=== PATIENT | female | born 1965 | race Caucasian/White ===

== ENCOUNTER 2023-09-03 16:55 | Inpatient (IN) | payer OTHER, SELFPAY ==
[2023-09-03 18:35] VITALS: BP 121/62; PULSE 72; RESP 18; TEMP 37.1; O2SAT 94
--- NOTE | 2023-09-03 18:37 | PC.ADMIT ---
Pt is a 57 y/0 bilingual female admitted from [facility] on a CV with Schizoaffective d/o. Pt was originally admitted to [facility] for RODNEY, which was cleared with IV fluids. Pt then became paranoid and catatonic requiring inpatient. 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 Pt was found sitting at a bustop for an unknown amount of time at a bustop. Pt has a hx HTN, Diabetes, dyslipidemia, and stress incontinence. Tox screen was negative. Pt arrived on a stretcher and was not responding verbally to commands. Pt brought to her room and required physical prompts and assistance to get out of stretcher and into bed. Pt only responded with scant nods and blinking. Pt nodded yes to feeling safe here. Pt has a psychiatric history.Pt was taking medications at [facility].
[2023-09-03] MEDS: LORazepam 1 MG TABLET 2 MG PO (19:13)
[2023-09-03 20:00] VITALS: BP 122/58; PULSE 70; RESP 16; TEMP 36.8; O2SAT 95
[2023-09-03] MEDS: OXcarbazepine 150 MG TABLET PO (21:36)
[2023-09-03] MEDS: metFORMIN HCl 1,000 MG TABLET 1000 MG PO (21:36)
[2023-09-03] MEDS: Atorvastatin Calcium 40 MG TABLET PO (21:36)
[2023-09-03] MEDS: OLANZapine 10 MG TABLET 15 MG PO (21:36)
[2023-09-04 08:13] VITALS: BP 100/56; PULSE 67; RESP 16; TEMP 36.4; O2SAT 93
[2023-09-04 08:13] LABS: Glucose, Whole Blood 131 mg/dL (60-115)
[2023-09-04 08:15] VITALS: BP 100/56
[2023-09-04] MEDS: OXcarbazepine 150 MG TABLET PO ×2 (08:15→21:21)
[2023-09-04] MEDS: metFORMIN HCl 1,000 MG TABLET 1000 MG PO ×2 (08:15→21:21)
[2023-09-04] MEDS: amLODIPine Besylate 5 MG TABLET PO (08:15)
--- NOTE | 2023-09-04 09:05 | P.HPPSP_ITS ---
HPI Date of Service: 09/04/23 Chief Complaint: schizoaffective disorder HPI Narrative: per [facility] documentation, pt presented to ED on 08/23 with paranoia, selective mutism, and apparent catatonia. she had been found sitting at a bus stop apparently catatonic. she was briefly admitted to medicine service for RODNEY, then medical cleared after a few days. early psych evaluations were difficult due to pt's minimal participation and intermittent agitation. she did not improve following 2 mg IV ativan, not supporting catatonia Dx. [facility] notes cite collateral saying pt had stopped her medications about a month [employer] after firing her VNA, and that she had done well historically on a regimen including zyprexa 20 mg daily. per [facility], pt is well-known to their service and has similar prior presentations. on interview with MD on mental health unit at [facility], pt is more forthcoming than as described for much of her stay at [facility]. she is notably slowed and answers a lot of questions with, i don't know. history pt provides is supplemented with that in medical record from [facility]. pt denies any safety issues and is in agreement with restarting her home regimen. she has no questions or complaints. Past Psychiatric History: hosps: about 3 prior SA: reports about 5 times. can't recall method. SIB: denies HIB: denies outpt: Dr. Marcos for [facility] Narrative: DM lipids HTN stress incontinence obesity Family History: mother - depression, alzheimer's dementia father - alcohol sibs - mental health problems, she cannot provide more info Social History: reports she has been homeless for years, maybe living in a halfway. i don't know to a great many questions. financial difficulties. Substance History: tobacco - denies alcohol - uses every other day, a couple beers per occasion cannabis - none in the past 5 years pills - MRE years ago Trauma History: deferred Diagnostics Vital Signs (24Hr): Vital Signs - 24 hr 09/03/23 18:35 09/03/23 20:00 09/04/23 08:13 Temperature 98.8 F 98.2 F 97.5 F Pulse Rate 72 70 67 Respiratory Rate 18 16 16 Blood Pressure 121/62 122/58 L 100/56 L Pulse Oximetry 94 95 93 Oxygen Delivery Method Room Air Room Air Room Air 09/04/23 08:15 Temperature Pulse Rate Respiratory Rate Blood Pressure 100/56 L Pulse Oximetry Oxygen Delivery Method Labs 09/04/23 08:38 Labs: Laboratory Results - last 48 hr 09/04/23 08:07 POC Glucose 131 H Meds/Allergies Meds Home Medications ?Medication ?Instructions ?Recorded ?Confirmed ?Type Farxiga 10 mg PO DAILY 09/03/23 09/03/23 History amlodipine 5 mg PO DAILY 09/03/23 09/03/23 History atorvastatin 40 mg PO DAILY 09/03/23 09/03/23 History metformin 1,000 mg PO BID 09/03/23 09/03/23 History olanzapine 15 mg PO BEDTIME 09/03/23 09/03/23 History oxcarbazepine 150 mg PO BID 09/03/23 09/03/23 History sertraline 150 mg PO DAILY 09/03/23 09/03/23 History venlafaxine 37.5 mg PO DAILY 09/03/23 09/03/23 History Allergies Allergies Allergy/AdvReac Type Severity Reaction Status Date / Time penicillamine [Cuprimine] Allergy Unknown Unknown Verified 09/03/23 18:08 LOSARTAN Allergy Unknown Uncoded 09/03/23 18:08 SHRIMP Allergy Unknown Uncoded 09/03/23 18:09 Mental Status Exam Mental Status Exam Narrative: adequately dressed and groomed. cooperative. general PMR. speech soft, slowed, delayed. thoughts linear and logical, but paucity of thought. affect flat. mood good. denies SI/SIBI/HI/AVH. Assessment & Plan Assessment & Plan (1) Schizoaffective disorder, bipolar type: Status: Acute Code(s): F25.0 - Schizoaffective disorder, bipolar type (2) Diabetes mellitus: Status: Acute Code(s): E11.9 - Type 2 diabetes mellitus without complications Plan restart home medications. observe for improvement. modify regimen as indicated. Patient educated on: medication risk/benefits Certification I certify that partial hospital treatment is medically necessary due to the symptoms and problems resulting from the patient's mental illness and the failure to treat the patient at the partial hospital level of care would likely result in the patient requiring inpatient psychiatric care which could not be prevented at a less intensive level of care. Time Spent With Patient Time: Total time managing care of this patient today __75__ minutes.
[2023-09-04 09:23] LABS: Estimated Average Glucose 177 mg/dL; Hemoglobin A1c % 7.8 % (<6.0)
[2023-09-04 09:30] LABS: Alanine Aminotransferase 128 U/L (0-31); Albumin Level 3.5 g/dL (3.5-5.0); Alkaline Phosphatase 130 U/L (39-117); Anion Gap 15 (12-20); Aspartate Amino Transferase 86 U/L (5-31); Bilirubin Total 0.2 mg/dL (0.0-1.0); Blood Urea Nitrogen 28 mg/dL (9-16); Calcium 9.6 mg/dL (8.4-10.2); Carbon Dioxide 27 mmol/L (22-29); Chloride 102 mmol/L (96-108); Cholesterol 137 mg/dL (<200); Estimated Glomerular Filt Rate 35; Glucose Fasting 131 mg/dL (60-99); HDL Cholesterol 40 mg/dL (>40); LDL Cholesterol Calculated 77 mg/dL (<100); Potassium 4.4 mmol/L (3.3-5.1); Sodium 140 mmol/L (135-145); Total Protein 6.9 g/dL (6.5-8.0); Triglycerides 100 mg/dL (<150)
[2023-09-04 09:45] LABS: Thyroid Stimulating Hormone 1.48 uIU/mL (0.32-4.0)
[2023-09-04 10:59] LABS: Folate 9.8 ng/mL (> or = 4.0); Vitamin B12 391 pg/mL (200-900)
[2023-09-04 20:15] VITALS: BP 135/72; PULSE 108; RESP 18; TEMP 37.1; O2SAT 98
[2023-09-04] MEDS: Acetaminophen 325 MG TABLET 650 MG PO (20:38)
[2023-09-04 20:49] LABS: Glucose, Whole Blood 245 mg/dL (60-115)
[2023-09-04] MEDS: OLANZapine 10 MG TABLET 15 MG PO (21:20)
[2023-09-04] MEDS: Atorvastatin Calcium 40 MG TABLET PO (21:21)
[2023-09-05 08:36] VITALS: BP 131/88; PULSE 89; RESP 20; TEMP 36.4; O2SAT 97
[2023-09-05] MEDS: OXcarbazepine 150 MG TABLET PO ×2 (08:38→11:59)
[2023-09-05] MEDS: Pyridoxine HCl (Vitamin B6) 50 MG TABLET PO (08:39)
[2023-09-05] MEDS: Thiamine HCL 100 MG TABLET PO ×2 (08:39→20:28)
[2023-09-05 08:40] VITALS: BP 131/88
[2023-09-05] MEDS: Sennosides 8.6 MG TABLET 34.4 MG PO (08:40)
[2023-09-05] MEDS: Folic Acid 1 MG TABLET PO (08:40)
[2023-09-05] MEDS: Tamsulosin HCL 0.4 MG CAPSULE PO (08:40)
[2023-09-05] MEDS: amLODIPine Besylate 5 MG TABLET PO (08:40)
[2023-09-05] MEDS: metFORMIN HCl 1,000 MG TABLET 1000 MG PO ×2 (08:41→20:27)
[2023-09-05] MEDS: polyethylene glycoL 3350 17 GM POWD.PACK PO ×2 (08:41→20:26)
--- NOTE | 2023-09-05 09:05 | P.CONHOSP_ITS ---
History of Present Illness Data of Consult Service Date: 09/05/23 Requesting physician: Casimiro Terrazas Primary Care Provider: Unknown Physician HPI Reason for consult: medical H&P 50-year-old female with history of type 2 diabetes and hypertension admitted to adult Psychiatry with consult placed to hospitalist service for medical H&P. The patient was transferred to our facility after being admitted to [facility] from 08/24-09/02 due to catatonia and selective mutism ultimately admitted to Medicine due to acute kidney injury. Despite IV fluid resuscitation, creatinine levels remained elevated from what was thought to be baseline around 1.59-1.8, had last been measured at 0.9 01/2023. She was evaluated by Nephrology recommending outpatient follow-up but no further inpatient workup. Recommended BNP be repeated in 1 week. Renal ultrasound was negative for evidence of hydronephrosis. On discharge, serum immunofixation and FLC remained pending and Nephrology recommended outpatient biopsy of kidney as needed ([facility]). [facility] discahrge summary, labs, and imaging reviewed. No acute medical issues on discharge. Review of Systems 2 Review of Systems: General: No fevers, malaise, unintentional weight loss HEENT: No blurred vision, diplopia. No sore throat, nasal congestion, rhinorrhea, sinus pain, ear pain Cardiovascular: No chest pain, palpitations, or leg edema Respiratory: No shortness of breath, wheezing, cough GI: No abdominal pain, nausea, vomiting, diarrhea, constipation, melena, hematochezia : No dysuria, hematuria, increased urinary frequency, decreased urinary output MSK: No myalgia, back pain Neuro: No headaches, weakness, paresthesias Skin: No rashes or lesions PMFSH Medical History HTN (hypertension) Type 2 diabetes mellitus Social History Household Members: None Housing: Homeless Do you presently have visiting nurse or other home services: No Patient Tobacco Use Status: Never used Tobacco Use of substances other than those prescribed or required for medical reasons: Unable to respond Currently Displaying Signs/Symptoms of Drug Intoxication Withdrawal: No Advance Directives: No Advance Directives Information Provided: No Do you have thoughts of harming others: None Do you have a plan to hurt others: No Plan Recently lost weight without trying: Unsure Patient : No : No (catatonic, not responding) Poor oral hygiene: No service: No Sexual orientation: Straight/Heterosexual Meds Allergies Allergy/AdvReac Type Severity Reaction Status Date / Time penicillamine [Cuprimine] Allergy Unknown Unknown Verified 09/03/23 18:08 LOSARTAN Allergy Unknown Uncoded 09/03/23 18:08 SHRIMP Allergy Unknown Uncoded 09/03/23 18:09 Active Medications: Current Medications Acetaminophen (Acetaminophen 325 Mg Tablet) 650 mg PO Q6H PRN PRN Reason: Headache/Pain Mild Scale (1-3) Last Admin: 09/04/23 20:38 Dose: 650 mg Al Hydroxide/Mg Hydroxide (Magnesium Hydrox/Alum Hydrox 30 Ml Oral.Susp) 30 ml PO Q6H PRN PRN Reason: Heartburn/Nausea Amlodipine Besylate (Amlodipine Besylate 5 Mg Tablet) 5 mg PO DAILY [facility] Last Admin: 09/05/23 08:40 Dose: 5 mg Atorvastatin Calcium (Atorvastatin Calcium 40 Mg Tablet) 40 mg PO BEDTIME [facility] Last Admin: 09/04/23 21:21 Dose: 40 mg Folic Acid (Folic Acid 1 Mg Tablet) 1 mg PO DAILY [facility] Last Admin: 09/05/23 08:40 Dose: 1 mg Hydroxyzine HCl (Hydroxyzine Hcl 25 Mg Tablet) 25 mg PO Q6H PRN PRN Reason: Anxiety Magnesium Hydroxide (Milk Of Magnesia 30 Ml Oral.Susp) 30 ml PO DAILY PRN PRN Reason: Constipation Metformin HCl (Metformin Hcl 1,000 Mg Tablet) 1,000 mg PO BID [facility] Last Admin: 09/05/23 08:41 Dose: 1,000 mg Olanzapine (Olanzapine 10 Mg Tablet) 15 mg PO BEDTIME [facility] Last Admin: 09/04/23 21:20 Dose: 15 mg Oxcarbazepine (Oxcarbazepine 150 Mg Tablet) 150 mg PO BID [facility] Last Admin: 09/05/23 08:38 Dose: 150 mg Polyethylene Glycol (Polyethylene Glycol 3350 17 Gm Powd.Pack) 17 gm PO BID [facility] Last Admin: 09/05/23 08:41 Dose: 17 gm Pyridoxine HCl (Pyridoxine Hcl (Vitamin B6) 50 Mg Tablet) 50 mg PO DAILY [facility] Last Admin: 09/05/23 08:39 Dose: 50 mg Senna (Sennosides 8.6 Mg Tablet) 34.4 mg PO DAILY [facility] Last Admin: 09/05/23 08:40 Dose: 34.4 mg Tamsulosin HCl (Tamsulosin Hcl 0.4 Mg Capsule) 0.4 mg PO DAILY [facility] Last Admin: 09/05/23 08:40 Dose: 0.4 mg Thiamine HCl (Thiamine Hcl 100 Mg Tablet) 100 mg PO BID [facility] Last Admin: 09/05/23 08:39 Dose: 100 mg Trazodone HCl (Trazodone Hcl 50 Mg Tablet) 50 mg PO BEDTIME MRX1 PRN PRN Reason: Insomnia Home Medications ?Medication ?Instructions ?Recorded ?Confirmed ?Last Taken ?Type Farxiga 10 mg PO DAILY 09/03/23 09/03/23 Unknown History amlodipine 5 mg PO DAILY 09/03/23 09/03/23 Unknown History atorvastatin 40 mg PO DAILY 09/03/23 09/03/23 Unknown History metformin 1,000 mg PO BID 09/03/23 09/03/23 Unknown History olanzapine 15 mg PO BEDTIME 09/03/23 09/03/23 Unknown History oxcarbazepine 150 mg PO BID 09/03/23 09/03/23 Unknown History sertraline 150 mg PO DAILY 09/03/23 09/03/23 Unknown History venlafaxine 37.5 mg PO DAILY 09/03/23 09/03/23 Unknown History Physical Exam 2 Vital Signs and Narrative: Vital Signs: Last Vital Signs Temp 97.6 F 09/05/23 08:36 Pulse 89 09/05/23 08:36 Resp 20 09/05/23 08:36 BP 131/88 09/05/23 08:40 Pulse Ox 97 09/05/23 08:36 O2 Del Method Room Air 09/05/23 08:36 Constitutional - Awake and Alert, No apparent distress Eyes - PERRLA, EOMI Cardiovascular - S1S2, RRR, No edema Respiratory - Normal lung expansion, Normal respiratory effort, No respiratory distress, CTA bilaterally Gastrointestinal - NT / ND; +BS; No rebound or guarding - No CVA tenderness Extremities - no calf tenderness bilaterally, no swelling Musculoskeletal - Normal inspection, normal ROM Skin - Warm/Dry Neurological - Alert & oriented x3, CN II-XII in tact, 5/5 strength BUE and BLE Psychological - Appropriate affect Results Labs 09/04/23 08:38 Labs: Laboratory Results - last 24 hr 09/04/23 09/04/23 08:38 20:42 Anion Gap 15 Estim Creat Clear Calc TNP Estimated GFR 35 POC Glucose 245 H Fasting Glucose 131 H Estimat Average Glucose 177 Hemoglobin A1c % 7.8 H Calcium 9.6 Magnesium 2.0 Total Bilirubin 0.2 AST 86 H ALT 128 H Alkaline Phosphatase 130 H Total Protein 6.9 Albumin 3.5 Triglycerides 100 Cholesterol 137 LDL Cholesterol, Calc 77 HDL Cholesterol 40 L Vitamin B12 391 Folate 9.8 TSH 1.48 Assessment and Plan (1) Routine medical exam: Status: Acute Plan 50-year-old female with history of type 2 diabetes and hypertension admitted to adult Psychiatry with consult placed to hospitalist service for medical H&P. The patient was transferred to our facility after being admitted to [facility] from 08/24-09/02 due to catatonia and selective mutism ultimately admitted to Medicine due to acute kidney injury. #Mood disoder/catatonia/mutism -plan per psychiatry #Acute kidney injury -discharge summary from [facility] reviewed. Creat around 1.8, ?new baseline. Renal US unremarkable. Outpt follow up per nephrology ([facility]) -continue avoiding SGLT2 -Repeat BMP 1 week per nephro. If needed, consider nephrology consult ([facility] group) #TYpe 2 diabetes -monitor POC, recommend diabetic diet -continue metformin. Add ademlog on ss if needed. Hold farxiga or any SGLT2 #HTN -continue amlodipine Thank you for allowing me to participate in this consult. Signing off at this time. Please do not hesitate to call for further questions or for any acute medical issues or concern
[2023-09-05 09:12] LABS: Glucose, Whole Blood 156 mg/dL (60-115)
--- NOTE | 2023-09-05 15:51 | HO.PSYCHPN ---
Subjective Subjective Date of Service: 09/05/23 Reason For Visit: schizoaffective disorder Interim History: calm, cooperative. agreeable to increase trileptal to 300 BID. no questions or complaints. per staff, dep 7 anx 9. POC 131, 245. verbal, showered, changed clothes. 01/06 dep/anx. up several times overnight to void. slept about 7 hours. Mental Status Exam Mental Status Exam Narrative: adequately dressed and groomed. cooperative. general PMR. speech soft, slowed, delayed. thoughts linear and logical, but paucity of thought. affect flat. mood good. denies SI/SIBI/HI/AVH. Diagnostics Vital Signs (24Hr): Vital Signs - 24 hr 09/04/23 20:15 09/05/23 08:36 09/05/23 08:40 Temperature 98.8 F 97.6 F Pulse Rate 108 H 89 Respiratory Rate 18 20 Blood Pressure 135/72 131/88 131/88 Pulse Oximetry 98 97 Oxygen Delivery Method Room Air Room Air Labs 09/04/23 08:38 Labs: Laboratory Results - last 48 hr 09/04/23 09/04/23 09/04/23 08:07 08:38 20:42 Sodium 140 Potassium 4.4 Chloride 102 Carbon Dioxide 27 Anion Gap 15 BUN 28 H Creatinine 1.51 H Estim Creat Clear Calc TNP Estimated GFR 35 POC Glucose 131 H 245 H Fasting Glucose 131 H Estimat Average Glucose 177 Hemoglobin A1c % 7.8 H Calcium 9.6 Magnesium 2.0 Total Bilirubin 0.2 AST 86 H ALT 128 H Alkaline Phosphatase 130 H Total Protein 6.9 Albumin 3.5 Triglycerides 100 Cholesterol 137 LDL Cholesterol, Calc 77 HDL Cholesterol 40 L Vitamin B12 391 Folate 9.8 TSH 1.48 09/05/23 09:07 Sodium Potassium Chloride Carbon Dioxide Anion Gap BUN Creatinine Estim Creat Clear Calc Estimated GFR POC Glucose 156 H Fasting Glucose Estimat Average Glucose Hemoglobin A1c % Calcium Magnesium Total Bilirubin AST ALT Alkaline Phosphatase Total Protein Albumin Triglycerides Cholesterol LDL Cholesterol, Calc HDL Cholesterol Vitamin B12 Folate TSH Medications Medications Current Medications Acetaminophen (Acetaminophen 325 Mg Tablet) 650 mg PO Q6H PRN PRN Reason: Headache/Pain Mild Scale (1-3) Last Admin: 09/04/23 20:38 Dose: 650 mg Al Hydroxide/Mg Hydroxide (Magnesium Hydrox/Alum Hydrox 30 Ml Oral.Susp) 30 ml PO Q6H PRN PRN Reason: Heartburn/Nausea Amlodipine Besylate (Amlodipine Besylate 5 Mg Tablet) 5 mg PO DAILY [facility] Last Admin: 09/05/23 08:40 Dose: 5 mg Atorvastatin Calcium (Atorvastatin Calcium 40 Mg Tablet) 40 mg PO BEDTIME [facility] Last Admin: 09/04/23 21:21 Dose: 40 mg Folic Acid (Folic Acid 1 Mg Tablet) 1 mg PO DAILY [facility] Last Admin: 09/05/23 08:40 Dose: 1 mg Hydroxyzine HCl (Hydroxyzine Hcl 25 Mg Tablet) 25 mg PO Q6H PRN PRN Reason: Anxiety Magnesium Hydroxide (Milk Of Magnesia 30 Ml Oral.Susp) 30 ml PO DAILY PRN PRN Reason: Constipation Metformin HCl (Metformin Hcl 1,000 Mg Tablet) 1,000 mg PO BID [facility] Last Admin: 09/05/23 08:41 Dose: 1,000 mg Olanzapine (Olanzapine 10 Mg Tablet) 15 mg PO BEDTIME [facility] Last Admin: 09/04/23 21:20 Dose: 15 mg Oxcarbazepine (Oxcarbazepine 300 Mg Tablet) 300 mg PO BID [facility] Polyethylene Glycol (Polyethylene Glycol 3350 17 Gm Powd.Pack) 17 gm PO BID [facility] Last Admin: 09/05/23 08:41 Dose: 17 gm Pyridoxine HCl (Pyridoxine Hcl (Vitamin B6) 50 Mg Tablet) 50 mg PO DAILY [facility] Last Admin: 09/05/23 08:39 Dose: 50 mg Senna (Sennosides 8.6 Mg Tablet) 34.4 mg PO DAILY [facility] Last Admin: 09/05/23 08:40 Dose: 34.4 mg Tamsulosin HCl (Tamsulosin Hcl 0.4 Mg Capsule) 0.4 mg PO DAILY [facility] Last Admin: 09/05/23 08:40 Dose: 0.4 mg Thiamine HCl (Thiamine Hcl 100 Mg Tablet) 100 mg PO BID [facility] Last Admin: 09/05/23 08:39 Dose: 100 mg Trazodone HCl (Trazodone Hcl 50 Mg Tablet) 50 mg PO BEDTIME MRX1 PRN PRN Reason: Insomnia Allergies Allergies Allergy/AdvReac Type Severity Reaction Status Date / Time penicillamine [Cuprimine] Allergy Unknown Unknown Verified 09/03/23 18:08 LOSARTAN Allergy Unknown Uncoded 09/03/23 18:08 SHRIMP Allergy Unknown Uncoded 09/03/23 18:09 Assessment & Plan Assessment & Plan (1) Routine medical exam: Status: Acute Code(s): Z00.00 - Encounter for general adult medical examination without abnormal findings Plan 09/03: restart home medications. observe for improvement. modify regimen as indicated. 09/04: calm, cooperative. no change in presentation. continue current mgmt. 50-year-old female with history of type 2 diabetes and hypertension admitted to adult Psychiatry with consult placed to hospitalist service for medical H&P. The patient was transferred to our facility after being admitted to [facility] from 08/24-09/02 due to catatonia and selective mutism ultimately admitted to Medicine due to acute kidney injury. #Mood disoder/catatonia/mutism -plan per psychiatry #Acute kidney injury -discharge summary from [facility] reviewed. Creat around 1.8, ?new baseline. Renal US unremarkable. Outpt follow up per nephrology ([facility]) -continue avoiding SGLT2 -Repeat BMP 1 week per nephro. If needed, consider nephrology consult ([facility] group) #TYpe 2 diabetes -monitor POC, recommend diabetic diet -continue metformin. Add ademlog on ss if needed. Hold farxiga or any SGLT2 #HTN -continue amlodipine Thank you for allowing me to participate in this consult. Signing off at this time. Please do not hesitate to call for further questions or for any acute medical issues or concern Reason for continued inpatient stay Substantial Risk for: inability to function Time Spent With Patient Time: Total time managing care of this patient today ____ minutes.
[2023-09-05 19:45] VITALS: BP 115/57; PULSE 78; RESP 16; TEMP 36.9; O2SAT 98
[2023-09-05] MEDS: OXcarbazepine 300 MG TABLET PO (20:27)
[2023-09-05] MEDS: Atorvastatin Calcium 40 MG TABLET PO (20:27)
[2023-09-05] MEDS: OLANZapine 10 MG TABLET 15 MG PO (20:28)
[2023-09-05 20:41] LABS: Glucose, Whole Blood 271 mg/dL (60-115)
[2023-09-06 07:45] VITALS: BP 120/68; PULSE 68; RESP 14; TEMP 36.4; O2SAT 96
[2023-09-06] MEDS: OXcarbazepine 300 MG TABLET PO ×2 (09:09→20:33)
[2023-09-06] MEDS: Tamsulosin HCL 0.4 MG CAPSULE PO (09:09)
[2023-09-06] MEDS: Folic Acid 1 MG TABLET PO (09:09)
[2023-09-06] MEDS: Sennosides 8.6 MG TABLET 34.4 MG PO (09:09)
[2023-09-06] MEDS: Pyridoxine HCl (Vitamin B6) 50 MG TABLET PO (09:09)
[2023-09-06] MEDS: Thiamine HCL 100 MG TABLET PO ×2 (09:09→20:33)
[2023-09-06 09:10] VITALS: BP 120/68
[2023-09-06] MEDS: amLODIPine Besylate 5 MG TABLET PO (09:10)
[2023-09-06] MEDS: metFORMIN HCl 500 MG TABLET PO ×2 (09:10→20:33)
[2023-09-06] MEDS: polyethylene glycoL 3350 17 GM POWD.PACK PO ×2 (09:11→20:32)
[2023-09-06 12:57] LABS: Glucose, Whole Blood 122 mg/dL (60-115)
--- NOTE | 2023-09-06 14:24 | P.PNPSI_ITS ---
Subjective Subjective Date of Service: 09/06/23 Reason For Visit: schizoaffective disorder Interim History: calm, cooperative. no questions or complaints. per staff, no issues. changed into clothes with cueing. Mental Status Exam Mental Status Exam Narrative: adequately dressed and groomed. cooperative. general PMR. speech soft, slowed, delayed. thoughts linear and logical, but paucity of thought. affect flat. mood good. denies SI/SIBI/HI/AVH. Diagnostics Vital Signs (24Hr): Vital Signs - 24 hr 09/05/23 19:45 09/06/23 07:45 09/06/23 09:10 Temperature 98.4 F 97.6 F Pulse Rate 78 68 Respiratory Rate 16 14 Blood Pressure 115/57 L 120/68 120/68 Pulse Oximetry 98 96 Oxygen Delivery Method Room Air Room Air Labs 09/04/23 08:38 Labs: Laboratory Results - last 48 hr 09/04/23 09/05/23 09/05/23 20:42 09:07 20:33 POC Glucose 245 H 156 H 271 H 09/06/23 09:06 POC Glucose 122 H Medications Medications Current Medications Acetaminophen (Acetaminophen 325 Mg Tablet) 650 mg PO Q6H PRN PRN Reason: Headache/Pain Mild Scale (1-3) Last Admin: 09/04/23 20:38 Dose: 650 mg Al Hydroxide/Mg Hydroxide (Magnesium Hydrox/Alum Hydrox 30 Ml Oral.Susp) 30 ml PO Q6H PRN PRN Reason: Heartburn/Nausea Amlodipine Besylate (Amlodipine Besylate 5 Mg Tablet) 5 mg PO DAILY [facility] Last Admin: 09/06/23 09:10 Dose: 5 mg Atorvastatin Calcium (Atorvastatin Calcium 40 Mg Tablet) 40 mg PO BEDTIME [facility] Last Admin: 09/05/23 20:27 Dose: 40 mg Folic Acid (Folic Acid 1 Mg Tablet) 1 mg PO DAILY [facility] Last Admin: 09/06/23 09:09 Dose: 1 mg Hydroxyzine HCl (Hydroxyzine Hcl 25 Mg Tablet) 25 mg PO Q6H PRN PRN Reason: Anxiety Magnesium Hydroxide (Milk Of Magnesia 30 Ml Oral.Susp) 30 ml PO DAILY PRN PRN Reason: Constipation Metformin HCl (Metformin Hcl 500 Mg Tablet) 500 mg PO BID [facility] Last Admin: 09/06/23 09:10 Dose: 500 mg Olanzapine (Olanzapine 10 Mg Tablet) 15 mg PO BEDTIME [facility] Last Admin: 09/05/23 20:28 Dose: 15 mg Oxcarbazepine (Oxcarbazepine 300 Mg Tablet) 300 mg PO BID [facility] Last Admin: 09/06/23 09:09 Dose: 300 mg Polyethylene Glycol (Polyethylene Glycol 3350 17 Gm Powd.Pack) 17 gm PO BID [facility] Last Admin: 09/06/23 09:11 Dose: 17 gm Pyridoxine HCl (Pyridoxine Hcl (Vitamin B6) 50 Mg Tablet) 50 mg PO DAILY [facility] Last Admin: 09/06/23 09:09 Dose: 50 mg Senna (Sennosides 8.6 Mg Tablet) 34.4 mg PO DAILY [facility] Last Admin: 09/06/23 09:09 Dose: 34.4 mg Tamsulosin HCl (Tamsulosin Hcl 0.4 Mg Capsule) 0.4 mg PO DAILY [facility] Last Admin: 09/06/23 09:09 Dose: 0.4 mg Thiamine HCl (Thiamine Hcl 100 Mg Tablet) 100 mg PO BID [facility] Last Admin: 09/06/23 09:09 Dose: 100 mg Trazodone HCl (Trazodone Hcl 50 Mg Tablet) 50 mg PO BEDTIME MRX1 PRN PRN Reason: Insomnia Allergies Allergies Allergy/AdvReac Type Severity Reaction Status Date / Time penicillamine [Cuprimine] Allergy Unknown Unknown Verified 09/03/23 18:08 LOSARTAN Allergy Unknown Uncoded 09/03/23 18:08 SHRIMP Allergy Unknown Uncoded 09/03/23 18:09 Assessment & Plan Assessment & Plan (1) Routine medical exam: Status: Acute Code(s): Z00.00 - Encounter for general adult medical examination without abnormal findings Plan 09/03: restart home medications. observe for improvement. modify regimen as indicated. 09/04: calm, cooperative. no change in presentation. continue current mgmt. 09/05: calm, cooperative. no change in presentation. continue current mgmt. 50-year-old female with history of type 2 diabetes and hypertension admitted to adult Psychiatry with consult placed to hospitalist service for medical H&P. The patient was transferred to our facility after being admitted to [facility] from 08/24-09/02 due to catatonia and selective mutism ultimately admitted to Medicine due to acute kidney injury. #Mood disoder/catatonia/mutism -plan per psychiatry #Acute kidney injury -discharge summary from [facility] reviewed. Creat around 1.8, ?new baseline. Renal US unremarkable. Outpt follow up per nephrology ([facility]) -continue avoiding SGLT2 -Repeat BMP 1 week per nephro. If needed, consider nephrology consult ([facility] group) #TYpe 2 diabetes -monitor POC, recommend diabetic diet -continue metformin. Add ademlog on ss if needed. Hold farxiga or any SGLT2 #HTN -continue amlodipine Thank you for allowing me to participate in this consult. Signing off at this time. Please do not hesitate to call for further questions or for any acute medical issues or concern Reason for continued inpatient stay Substantial Risk for: inability to function Time Spent With Patient Time: Total time managing care of this patient today ____ minutes.
[2023-09-06 20:00] VITALS: BP 132/76; PULSE 80; RESP 16; TEMP 37.1; O2SAT 100
[2023-09-06 20:11] LABS: Glucose, Whole Blood 231 mg/dL (60-115)
[2023-09-06] MEDS: OLANZapine 10 MG TABLET 15 MG PO (20:33)
[2023-09-06] MEDS: Atorvastatin Calcium 40 MG TABLET PO (20:33)
[2023-09-06] MEDS: traZODone HCL 50 MG TABLET PO (21:52)
[2023-09-07 08:00] VITALS: BP 112/73; PULSE 87; RESP 16; TEMP 36.6; O2SAT 95
[2023-09-07 08:01] LABS: Glucose, Whole Blood 177 mg/dL (60-115)
[2023-09-07] MEDS: Folic Acid 1 MG TABLET PO (08:24)
[2023-09-07] MEDS: OXcarbazepine 300 MG TABLET PO ×2 (08:24→20:34)
[2023-09-07] MEDS: Thiamine HCL 100 MG TABLET PO ×2 (08:24→20:34)
[2023-09-07] MEDS: Pyridoxine HCl (Vitamin B6) 50 MG TABLET PO (08:25)
[2023-09-07] MEDS: Sennosides 8.6 MG TABLET 34.4 MG PO (08:25)
[2023-09-07] MEDS: metFORMIN HCl 500 MG TABLET PO ×2 (08:26→20:34)
[2023-09-07] MEDS: Tamsulosin HCL 0.4 MG CAPSULE PO (08:26)
[2023-09-07] MEDS: polyethylene glycoL 3350 17 GM POWD.PACK PO ×2 (08:27→20:33)
[2023-09-07 08:28] VITALS: BP 112/73
[2023-09-07] MEDS: amLODIPine Besylate 5 MG TABLET PO (08:28)
--- NOTE | 2023-09-07 11:59 | HO.PSYCHPN ---
Subjective Subjective Date of Service: 09/07/23 Reason For Visit: schizoaffective disorder Interim History: c/o depression. declines ECT education. would like to restart SSRI/SNRI. had been on zoloft 150 mg daily and effexor 37.5 mg daily. per staff, dep 10 anx 8. no SI/HI/AVH. slept in anteroom 2/2 roommate's singing. slept about 6 hours.. Mental Status Exam Mental Status Exam Narrative: adequately dressed and groomed. cooperative. general PMR. speech soft, slowed, delayed. thoughts linear and logical, but paucity of thought. affect flat. mood depression. no SI/SIBI/HI/AVH expressed. Diagnostics Vital Signs (24Hr): Vital Signs - 24 hr 09/06/23 20:00 09/07/23 08:00 09/07/23 08:28 Temperature 98.8 F 97.9 F Pulse Rate 80 87 Respiratory Rate 16 16 Blood Pressure 132/76 112/73 112/73 Pulse Oximetry 100 95 Oxygen Delivery Method Room Air Room Air Labs 09/04/23 08:38 Labs: Laboratory Results - last 48 hr 09/05/23 09/06/23 09/06/23 20:33 09:06 20:05 POC Glucose 271 H 122 H 231 H 09/07/23 07:56 POC Glucose 177 H Medications Medications Current Medications Acetaminophen (Acetaminophen 325 Mg Tablet) 650 mg PO Q6H PRN PRN Reason: Headache/Pain Mild Scale (1-3) Last Admin: 09/04/23 20:38 Dose: 650 mg Al Hydroxide/Mg Hydroxide (Magnesium Hydrox/Alum Hydrox 30 Ml Oral.Susp) 30 ml PO Q6H PRN PRN Reason: Heartburn/Nausea Amlodipine Besylate (Amlodipine Besylate 5 Mg Tablet) 5 mg PO DAILY [facility] Last Admin: 09/07/23 08:28 Dose: 5 mg Atorvastatin Calcium (Atorvastatin Calcium 40 Mg Tablet) 40 mg PO BEDTIME [facility] Last Admin: 09/06/23 20:33 Dose: 40 mg Folic Acid (Folic Acid 1 Mg Tablet) 1 mg PO DAILY [facility] Last Admin: 09/07/23 08:24 Dose: 1 mg Hydroxyzine HCl (Hydroxyzine Hcl 25 Mg Tablet) 25 mg PO Q6H PRN PRN Reason: Anxiety Magnesium Hydroxide (Milk Of Magnesia 30 Ml Oral.Susp) 30 ml PO DAILY PRN PRN Reason: Constipation Metformin HCl (Metformin Hcl 500 Mg Tablet) 500 mg PO BID [facility] Last Admin: 09/07/23 08:26 Dose: 500 mg Olanzapine (Olanzapine 10 Mg Tablet) 15 mg PO BEDTIME [facility] Last Admin: 09/06/23 20:33 Dose: 15 mg Oxcarbazepine (Oxcarbazepine 300 Mg Tablet) 300 mg PO BID [facility] Last Admin: 09/07/23 08:24 Dose: 300 mg Polyethylene Glycol (Polyethylene Glycol 3350 17 Gm Powd.Pack) 17 gm PO BID [facility] Last Admin: 09/07/23 08:27 Dose: 17 gm Pyridoxine HCl (Pyridoxine Hcl (Vitamin B6) 50 Mg Tablet) 50 mg PO DAILY [facility] Last Admin: 09/07/23 08:25 Dose: 50 mg Senna (Sennosides 8.6 Mg Tablet) 34.4 mg PO DAILY [facility] Last Admin: 09/07/23 08:25 Dose: 34.4 mg Sertraline HCl (Sertraline Hcl 50 Mg Tablet) 50 mg PO DAILY [facility] Tamsulosin HCl (Tamsulosin Hcl 0.4 Mg Capsule) 0.4 mg PO DAILY [facility] Last Admin: 09/07/23 08:26 Dose: 0.4 mg Thiamine HCl (Thiamine Hcl 100 Mg Tablet) 100 mg PO BID [facility] Last Admin: 09/07/23 08:24 Dose: 100 mg Trazodone HCl (Trazodone Hcl 50 Mg Tablet) 50 mg PO BEDTIME MRX1 PRN PRN Reason: Insomnia Last Admin: 09/06/23 21:52 Dose: 50 mg Venlafaxine HCl (Venlafaxine Hcl Er 37.5 Mg Cap.Er.24h) 37.5 mg PO DAILY [facility] Allergies Allergies Allergy/AdvReac Type Severity Reaction Status Date / Time penicillamine [Cuprimine] Allergy Unknown Unknown Verified 09/03/23 18:08 LOSARTAN Allergy Unknown Uncoded 09/03/23 18:08 SHRIMP Allergy Unknown Uncoded 09/03/23 18:09 Assessment & Plan Assessment & Plan (1) Routine medical exam: Status: Acute Code(s): Z00.00 - Encounter for general adult medical examination without abnormal findings Plan 09/03: restart home medications. observe for improvement. modify regimen as indicated. 09/04: calm, cooperative. no change in presentation. continue current mgmt. 09/05: calm, cooperative. no change in presentation. continue current mgmt. 09/06: c/o depression. restart effexor XR 37.5 mg as of today, and zoloft 50 mg as of tomorrow (had been on zoloft 150 mg prior to admission). continue to hold Farxiga (NF in any event) as per hospitalist recs. 50-year-old female with history of type 2 diabetes and hypertension admitted to adult Psychiatry with consult placed to hospitalist service for medical H&P. The patient was transferred to our facility after being admitted to [facility] from 08/24-09/02 due to catatonia and selective mutism ultimately admitted to Medicine due to acute kidney injury. #Mood disoder/catatonia/mutism -plan per psychiatry #Acute kidney injury -discharge summary from [facility] reviewed. Creat around 1.8, ?new baseline. Renal US unremarkable. Outpt follow up per nephrology ([facility]) -continue avoiding SGLT2 -Repeat BMP 1 week per nephro. If needed, consider nephrology consult ([facility] group) #TYpe 2 diabetes -monitor POC, recommend diabetic diet -continue metformin. Add ademlog on ss if needed. Hold farxiga or any SGLT2 #HTN -continue amlodipine Thank you for allowing me to participate in this consult. Signing off at this time. Please do not hesitate to call for further questions or for any acute medical issues or concern Reason for continued inpatient stay Substantial Risk for: inability to function and rapid decompensation Time Spent With Patient Time: Total time managing care of this patient today __25__ minutes.
[2023-09-07] MEDS: Venlafaxine HCl ER 37.5 MG CAP.ER.24H PO (12:28)
[2023-09-07 20:00] VITALS: BP 142/79; PULSE 78; RESP 16; TEMP 36.7; O2SAT 95
[2023-09-07 20:11] LABS: Glucose, Whole Blood 307 mg/dL (60-115)
[2023-09-07] MEDS: OLANZapine 10 MG TABLET 15 MG PO (20:34)
[2023-09-07] MEDS: traZODone HCL 50 MG TABLET PO (20:34)
[2023-09-07] MEDS: Atorvastatin Calcium 40 MG TABLET PO (20:34)
[2023-09-08 07:20] VITALS: BP 132/81; PULSE 78; RESP 12; TEMP 36.7; O2SAT 95
[2023-09-08 08:22] LABS: Glucose, Whole Blood 179 mg/dL (60-115)
[2023-09-08] MEDS: Tamsulosin HCL 0.4 MG CAPSULE PO (09:11)
[2023-09-08] MEDS: Sennosides 8.6 MG TABLET 34.4 MG PO (09:11)
[2023-09-08] MEDS: Venlafaxine HCl ER 37.5 MG CAP.ER.24H PO (09:12)
[2023-09-08 09:13] VITALS: BP 132/81
[2023-09-08] MEDS: Pyridoxine HCl (Vitamin B6) 50 MG TABLET PO (09:13)
[2023-09-08] MEDS: metFORMIN HCl 500 MG TABLET PO ×2 (09:13→20:55)
[2023-09-08] MEDS: OXcarbazepine 300 MG TABLET PO ×2 (09:13→20:55)
[2023-09-08] MEDS: amLODIPine Besylate 5 MG TABLET PO (09:13)
[2023-09-08] MEDS: Sertraline HCL 50 MG TABLET PO (09:13)
[2023-09-08] MEDS: Thiamine HCL 100 MG TABLET PO ×2 (09:13→20:57)
[2023-09-08] MEDS: Folic Acid 1 MG TABLET PO (09:14)
[2023-09-08] MEDS: polyethylene glycoL 3350 17 GM POWD.PACK PO ×2 (09:14→20:57)
--- NOTE | 2023-09-08 09:20 | HO.PSYCHPN ---
Subjective Subjective Date of Service: 09/08/23 Reason For Visit: schizoaffective disorder Subjective Notes: Conditional Voluntary Interim History: Pt slept through the night. She has been mostly in her room. Her affect is withdrawn. She reports feeling depressed. She denies SI/HI. 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 Diagnostics Vital Signs (24Hr): Vital Signs - 24 hr 09/07/23 20:00 09/08/23 07:20 09/08/23 09:13 Temperature 98.1 F 98.1 F Pulse Rate 78 78 Respiratory Rate 16 12 Blood Pressure 142/79 H 132/81 132/81 Pulse Oximetry 95 95 Oxygen Delivery Method Room Air Room Air Labs 09/04/23 08:38 Labs: Laboratory Results - last 48 hr 09/06/23 09/06/23 09/07/23 09:06 20:05 07:56 POC Glucose 122 H 231 H 177 H 09/07/23 09/08/23 20:08 08:02 POC Glucose 307 H 179 H Medications Medications Current Medications Acetaminophen (Acetaminophen 325 Mg Tablet) 650 mg PO Q6H PRN PRN Reason: Headache/Pain Mild Scale (1-3) Last Admin: 09/04/23 20:38 Dose: 650 mg Al Hydroxide/Mg Hydroxide (Magnesium Hydrox/Alum Hydrox 30 Ml Oral.Susp) 30 ml PO Q6H PRN PRN Reason: Heartburn/Nausea Amlodipine Besylate (Amlodipine Besylate 5 Mg Tablet) 5 mg PO DAILY [facility] Last Admin: 09/08/23 09:13 Dose: 5 mg Atorvastatin Calcium (Atorvastatin Calcium 40 Mg Tablet) 40 mg PO BEDTIME [facility] Last Admin: 09/07/23 20:34 Dose: 40 mg Folic Acid (Folic Acid 1 Mg Tablet) 1 mg PO DAILY [facility] Last Admin: 09/08/23 09:14 Dose: 1 mg Hydroxyzine HCl (Hydroxyzine Hcl 25 Mg Tablet) 25 mg PO Q6H PRN PRN Reason: Anxiety Magnesium Hydroxide (Milk Of Magnesia 30 Ml Oral.Susp) 30 ml PO DAILY PRN PRN Reason: Constipation Metformin HCl (Metformin Hcl 500 Mg Tablet) 500 mg PO BID [facility] Last Admin: 09/08/23 09:13 Dose: 500 mg Olanzapine (Olanzapine 10 Mg Tablet) 15 mg PO BEDTIME [facility] Last Admin: 09/07/23 20:34 Dose: 15 mg Oxcarbazepine (Oxcarbazepine 300 Mg Tablet) 300 mg PO BID [facility] Last Admin: 09/08/23 09:13 Dose: 300 mg Polyethylene Glycol (Polyethylene Glycol 3350 17 Gm Powd.Pack) 17 gm PO BID [facility] Last Admin: 09/08/23 09:14 Dose: 17 gm Pyridoxine HCl (Pyridoxine Hcl (Vitamin B6) 50 Mg Tablet) 50 mg PO DAILY [facility] Last Admin: 09/08/23 09:13 Dose: 50 mg Senna (Sennosides 8.6 Mg Tablet) 34.4 mg PO DAILY [facility] Last Admin: 09/08/23 09:11 Dose: 34.4 mg Sertraline HCl (Sertraline Hcl 50 Mg Tablet) 50 mg PO DAILY [facility] Last Admin: 09/08/23 09:13 Dose: 50 mg Tamsulosin HCl (Tamsulosin Hcl 0.4 Mg Capsule) 0.4 mg PO DAILY [facility] Last Admin: 09/08/23 09:11 Dose: 0.4 mg Thiamine HCl (Thiamine Hcl 100 Mg Tablet) 100 mg PO BID [facility] Last Admin: 09/08/23 09:13 Dose: 100 mg Trazodone HCl (Trazodone Hcl 50 Mg Tablet) 50 mg PO BEDTIME MRX1 PRN PRN Reason: Insomnia Last Admin: 09/07/23 20:34 Dose: 50 mg Venlafaxine HCl (Venlafaxine Hcl Er 37.5 Mg Cap.Er.24h) 37.5 mg PO DAILY [facility] Last Admin: 09/08/23 09:12 Dose: 37.5 mg Allergies Allergies Allergy/AdvReac Type Severity Reaction Status Date / Time penicillamine [Cuprimine] Allergy Unknown Unknown Verified 09/03/23 18:08 [place]AN Allergy Unknown Uncoded 09/03/23 18:08 SHRIMP Allergy Unknown Uncoded 09/03/23 18:09 Assessment & Plan Assessment & Plan (1) Schizoaffective disorder, bipolar type: Status: Acute Code(s): F25.0 - Schizoaffective disorder, bipolar type Plan 09/03: restart home medications. observe for improvement. modify regimen as indicated. 09/04: calm, cooperative. no change in presentation. continue current mgmt. 09/05: calm, cooperative. no change in presentation. continue current mgmt. 09/06: c/o depression. restart effexor XR 37.5 mg as of today, and zoloft 50 mg as of tomorrow (had been on zoloft 150 mg prior to admission). continue to hold Farxiga (NF in any event) as per hospitalist recs. 09/06 continue tx. 50-year-old female with history of type 2 diabetes and hypertension admitted to adult Psychiatry with consult placed to hospitalist service for medical H&P. The patient was transferred to our facility after being admitted to [facility] from 08/24-09/02 due to catatonia and selective mutism ultimately admitted to Medicine due to acute kidney injury. #Mood disoder/catatonia/mutism -plan per psychiatry #Acute kidney injury -discharge summary from [facility] reviewed. Creat around 1.8, ?new baseline. Renal US unremarkable. Outpt follow up per nephrology ([facility]) -continue avoiding SGLT2 -Repeat BMP 1 week per nephro. If needed, consider nephrology consult ([facility] group) #TYpe 2 diabetes -monitor POC, recommend diabetic diet -continue metformin. Add ademlog on ss if needed. Hold farxiga or any SGLT2 #HTN -continue amlodipine Thank you for allowing me to participate in this consult. Signing off at this time. Please do not hesitate to call for further questions or for any acute medical issues or concern Reason for continued inpatient stay Substantial Risk for: inability to function Time Spent With Patient Time: Total time managing care of this patient today ____ minutes.
[2023-09-08 20:00] VITALS: BP 131/84; PULSE 76; RESP 16; TEMP 37.2; O2SAT 98
[2023-09-08] MEDS: OLANZapine 10 MG TABLET 15 MG PO (20:55)
[2023-09-08] MEDS: traZODone HCL 50 MG TABLET PO (20:55)
[2023-09-08] MEDS: Atorvastatin Calcium 40 MG TABLET PO (20:56)
[2023-09-08 22:37] LABS: Glucose, Whole Blood 329 mg/dL (60-115)
[2023-09-09 07:25] VITALS: BP 115/58; PULSE 68; RESP 14; TEMP 36.9; O2SAT 97
[2023-09-09 08:17] LABS: Glucose, Whole Blood 165 mg/dL (60-115)
[2023-09-09] MEDS: Sennosides 8.6 MG TABLET 34.4 MG PO (09:43)
[2023-09-09] MEDS: Sertraline HCL 50 MG TABLET PO ×2 (09:44→10:20)
[2023-09-09] MEDS: Pyridoxine HCl (Vitamin B6) 50 MG TABLET PO (09:44)
[2023-09-09] MEDS: metFORMIN HCl 500 MG TABLET PO ×2 (09:44→20:04)
[2023-09-09 09:45] VITALS: BP 116/62
[2023-09-09] MEDS: amLODIPine Besylate 5 MG TABLET PO (09:45)
[2023-09-09] MEDS: Thiamine HCL 100 MG TABLET PO ×2 (09:45→20:04)
[2023-09-09] MEDS: Folic Acid 1 MG TABLET PO (09:45)
[2023-09-09] MEDS: OXcarbazepine 300 MG TABLET PO ×2 (09:45→20:04)
[2023-09-09] MEDS: Tamsulosin HCL 0.4 MG CAPSULE PO (09:45)
[2023-09-09] MEDS: Venlafaxine HCl ER 37.5 MG CAP.ER.24H PO (09:45)
[2023-09-09] MEDS: polyethylene glycoL 3350 17 GM POWD.PACK PO ×2 (09:46→20:05)
--- NOTE | 2023-09-09 12:49 | HO.PSYCHPN ---
Subjective Subjective Date of Service: 09/09/23 Reason For Visit: schizoaffective disorder Interim History: calm, cooperative. c/o depression. agreeable to increase zoloft to 100 as of today. no other complaints or requests. per staff, no dep/anx. taking meds. not social. slept 8-9 hours. Mental Status Exam Mental Status Exam Narrative: adequately dressed and groomed. cooperative. general PMR. speech soft, slowed, delayed. thoughts linear and logical, but paucity of thought. affect flat. mood depressed. no SI/SIBI/HI/AVH expressed. Diagnostics Vital Signs (24Hr): Vital Signs - 24 hr 09/08/23 20:00 09/09/23 07:25 09/09/23 09:45 Temperature 98.9 F 98.4 F Pulse Rate 76 68 Respiratory Rate 16 14 Blood Pressure 131/84 115/58 L 116/62 Pulse Oximetry 98 97 Oxygen Delivery Method Room Air Room Air Labs 09/04/23 08:38 Labs: Laboratory Results - last 48 hr 09/07/23 09/08/23 09/08/23 20:08 08:02 22:32 POC Glucose 307 H 179 H 329 H 09/09/23 08:00 POC Glucose 165 H Medications Medications Current Medications Acetaminophen (Acetaminophen 325 Mg Tablet) 650 mg PO Q6H PRN PRN Reason: Headache/Pain Mild Scale (1-3) Last Admin: 09/04/23 20:38 Dose: 650 mg Al Hydroxide/Mg Hydroxide (Magnesium Hydrox/Alum Hydrox 30 Ml Oral.Susp) 30 ml PO Q6H PRN PRN Reason: Heartburn/Nausea Amlodipine Besylate (Amlodipine Besylate 5 Mg Tablet) 5 mg PO DAILY [facility] Last Admin: 09/09/23 09:45 Dose: 5 mg Atorvastatin Calcium (Atorvastatin Calcium 40 Mg Tablet) 40 mg PO BEDTIME [facility] Last Admin: 09/08/23 20:56 Dose: 40 mg Folic Acid (Folic Acid 1 Mg Tablet) 1 mg PO DAILY [facility] Last Admin: 09/09/23 09:45 Dose: 1 mg Hydroxyzine HCl (Hydroxyzine Hcl 25 Mg Tablet) 25 mg PO Q6H PRN PRN Reason: Anxiety Magnesium Hydroxide (Milk Of Magnesia 30 Ml Oral.Susp) 30 ml PO DAILY PRN PRN Reason: Constipation Metformin HCl (Metformin Hcl 500 Mg Tablet) 500 mg PO BID [facility] Last Admin: 09/09/23 09:44 Dose: 500 mg Olanzapine (Olanzapine 10 Mg Tablet) 15 mg PO BEDTIME [facility] Last Admin: 09/08/23 20:55 Dose: 15 mg Oxcarbazepine (Oxcarbazepine 300 Mg Tablet) 300 mg PO BID [facility] Last Admin: 09/09/23 09:45 Dose: 300 mg Polyethylene Glycol (Polyethylene Glycol 3350 17 Gm Powd.Pack) 17 gm PO BID [facility] Last Admin: 09/09/23 09:46 Dose: 17 gm Pyridoxine HCl (Pyridoxine Hcl (Vitamin B6) 50 Mg Tablet) 50 mg PO DAILY [facility] Last Admin: 09/09/23 09:44 Dose: 50 mg Senna (Sennosides 8.6 Mg Tablet) 34.4 mg PO DAILY [facility] Last Admin: 09/09/23 09:43 Dose: 34.4 mg Sertraline HCl (Sertraline Hcl 100 Mg Tablet) 100 mg PO DAILY [facility] Tamsulosin HCl (Tamsulosin Hcl 0.4 Mg Capsule) 0.4 mg PO DAILY [facility] Last Admin: 09/09/23 09:45 Dose: 0.4 mg Thiamine HCl (Thiamine Hcl 100 Mg Tablet) 100 mg PO BID [facility] Last Admin: 09/09/23 09:45 Dose: 100 mg Trazodone HCl (Trazodone Hcl 50 Mg Tablet) 50 mg PO BEDTIME MRX1 PRN PRN Reason: Insomnia Last Admin: 09/08/23 20:55 Dose: 50 mg Venlafaxine HCl (Venlafaxine Hcl Er 37.5 Mg Cap.Er.24h) 37.5 mg PO DAILY [facility] Last Admin: 09/09/23 09:45 Dose: 37.5 mg Allergies Allergies Allergy/AdvReac Type Severity Reaction Status Date / Time penicillamine [Cuprimine] Allergy Unknown Unknown Verified 09/03/23 18:08 LOSARTAN Allergy Unknown Uncoded 09/03/23 18:08 SHRIMP Allergy Unknown Uncoded 09/03/23 18:09 Assessment & Plan Assessment & Plan (1) Schizoaffective disorder, bipolar type: Status: Acute Code(s): F25.0 - Schizoaffective disorder, bipolar type Plan 09/03: restart home medications. observe for improvement. modify regimen as indicated. 09/04: calm, cooperative. no change in presentation. continue current mgmt. 09/05: calm, cooperative. no change in presentation. continue current mgmt. 09/06: c/o depression. restart effexor XR 37.5 mg as of today, and zoloft 50 mg as of tomorrow (had been on zoloft 150 mg prior to admission). continue to hold Farxiga (NF in any event) as per hospitalist recs. 09/07: continue tx. 09/08: remains flat, slowed, c/o depression. increase zoloft to 100 mg daily as of today. 50-year-old female with history of type 2 diabetes and hypertension admitted to adult Psychiatry with consult placed to hospitalist service for medical H&P. The patient was transferred to our facility after being admitted to [facility] from 08/24-09/02 due to catatonia and selective mutism ultimately admitted to Medicine due to acute kidney injury. #Mood disoder/catatonia/mutism -plan per psychiatry #Acute kidney injury -discharge summary from [facility] reviewed. Creat around 1.8, ?new baseline. Renal US unremarkable. Outpt follow up per nephrology ([facility]) -continue avoiding SGLT2 -Repeat BMP 1 week per nephro. If needed, consider nephrology consult ([facility] group) #TYpe 2 diabetes -monitor POC, recommend diabetic diet -continue metformin. Add ademlog on ss if needed. Hold farxiga or any SGLT2 #HTN -continue amlodipine Thank you for allowing me to participate in this consult. Signing off at this time. Please do not hesitate to call for further questions or for any acute medical issues or concern Reason for continued inpatient stay Substantial Risk for: inability to function Time Spent With Patient Time: Total time managing care of this patient today _25___ minutes.
[2023-09-09 19:41] VITALS: BP 127/75; PULSE 89; RESP 16; TEMP 36.6; O2SAT 97
[2023-09-09] MEDS: OLANZapine 10 MG TABLET 15 MG PO (20:03)
[2023-09-09] MEDS: Atorvastatin Calcium 40 MG TABLET PO (20:04)
[2023-09-09 21:00] LABS: Glucose, Whole Blood 316 mg/dL (60-115)
[2023-09-10 07:41] VITALS: BP 130/60; PULSE 71; RESP 12; TEMP 36.4; O2SAT 97
[2023-09-10 08:23] LABS: Glucose, Whole Blood 141 mg/dL (60-115)
[2023-09-10] MEDS: polyethylene glycoL 3350 17 GM POWD.PACK PO ×2 (09:34→21:23)
[2023-09-10 09:35] VITALS: BP 130/60
[2023-09-10] MEDS: Thiamine HCL 100 MG TABLET PO ×2 (09:35→21:21)
[2023-09-10] MEDS: Tamsulosin HCL 0.4 MG CAPSULE PO (09:35)
[2023-09-10] MEDS: amLODIPine Besylate 5 MG TABLET PO (09:35)
[2023-09-10] MEDS: OXcarbazepine 300 MG TABLET PO ×2 (09:36→21:21)
[2023-09-10] MEDS: Sertraline HCL 100 MG TABLET PO (09:36)
[2023-09-10] MEDS: Folic Acid 1 MG TABLET PO (09:36)
[2023-09-10] MEDS: Venlafaxine HCl ER 37.5 MG CAP.ER.24H PO (09:36)
[2023-09-10] MEDS: Pyridoxine HCl (Vitamin B6) 50 MG TABLET PO (09:36)
[2023-09-10] MEDS: metFORMIN HCl 500 MG TABLET PO ×2 (09:36→21:21)
[2023-09-10] MEDS: Sennosides 8.6 MG TABLET 34.4 MG PO (09:37)
--- NOTE | 2023-09-10 12:07 | HO.PSYCHPN ---
Subjective Subjective Date of Service: 09/10/23 Reason For Visit: schizoaffective disorder Interim History: remains depressed, tired. planning to increase zoloft back to outpt dose of 150 on thursday. says she is hoping to attend groups today. per staff, taking meds, attended 1 group yesterday. denies dep/anx. c/o constipation. slept 8 hours. Mental Status Exam Mental Status Exam Narrative: adequately dressed and groomed. cooperative. general PMR. speech soft, slowed, delayed. thoughts linear and logical, but paucity of thought. affect flat. mood depressed. no SI/SIBI/HI/AVH expressed. Diagnostics Vital Signs (24Hr): Vital Signs - 24 hr 09/09/23 19:41 09/10/23 07:41 09/10/23 09:35 Temperature 98 F 97.5 F Pulse Rate 89 71 Respiratory Rate 16 12 Blood Pressure 127/75 130/60 130/60 Pulse Oximetry 97 97 Oxygen Delivery Method Room Air Room Air Labs 09/04/23 08:38 Labs: Laboratory Results - last 48 hr 09/08/23 09/09/23 09/09/23 22:32 08:00 20:56 POC Glucose 329 H 165 H 316 H 09/10/23 08:11 POC Glucose 141 H Medications Medications Current Medications Acetaminophen (Acetaminophen 325 Mg Tablet) 650 mg PO Q6H PRN PRN Reason: Headache/Pain Mild Scale (1-3) Last Admin: 09/04/23 20:38 Dose: 650 mg Al Hydroxide/Mg Hydroxide (Magnesium Hydrox/Alum Hydrox 30 Ml Oral.Susp) 30 ml PO Q6H PRN PRN Reason: Heartburn/Nausea Amlodipine Besylate (Amlodipine Besylate 5 Mg Tablet) 5 mg PO DAILY [facility] Last Admin: 09/10/23 09:35 Dose: 5 mg Atorvastatin Calcium (Atorvastatin Calcium 40 Mg Tablet) 40 mg PO BEDTIME [facility] Last Admin: 09/09/23 20:04 Dose: 40 mg Folic Acid (Folic Acid 1 Mg Tablet) 1 mg PO DAILY [facility] Last Admin: 09/10/23 09:36 Dose: 1 mg Hydroxyzine HCl (Hydroxyzine Hcl 25 Mg Tablet) 25 mg PO Q6H PRN PRN Reason: Anxiety Magnesium Hydroxide (Milk Of Magnesia 30 Ml Oral.Susp) 30 ml PO DAILY PRN PRN Reason: Constipation Metformin HCl (Metformin Hcl 500 Mg Tablet) 500 mg PO BID [facility] Last Admin: 09/10/23 09:36 Dose: 500 mg Olanzapine (Olanzapine 10 Mg Tablet) 15 mg PO BEDTIME [facility] Last Admin: 09/09/23 20:03 Dose: 15 mg Oxcarbazepine (Oxcarbazepine 300 Mg Tablet) 300 mg PO BID [facility] Last Admin: 09/10/23 09:36 Dose: 300 mg Polyethylene Glycol (Polyethylene Glycol 3350 17 Gm Powd.Pack) 17 gm PO BID [facility] Last Admin: 09/10/23 09:34 Dose: 17 gm Pyridoxine HCl (Pyridoxine Hcl (Vitamin B6) 50 Mg Tablet) 50 mg PO DAILY [facility] Last Admin: 09/10/23 09:36 Dose: 50 mg Senna (Sennosides 8.6 Mg Tablet) 34.4 mg PO DAILY [facility] Last Admin: 09/10/23 09:37 Dose: 34.4 mg Sertraline HCl (Sertraline Hcl 100 Mg Tablet) 100 mg PO DAILY [facility] Last Admin: 09/10/23 09:36 Dose: 100 mg Tamsulosin HCl (Tamsulosin Hcl 0.4 Mg Capsule) 0.4 mg PO DAILY [facility] Last Admin: 09/10/23 09:35 Dose: 0.4 mg Thiamine HCl (Thiamine Hcl 100 Mg Tablet) 100 mg PO BID [facility] Last Admin: 09/10/23 09:35 Dose: 100 mg Trazodone HCl (Trazodone Hcl 50 Mg Tablet) 50 mg PO BEDTIME MRX1 PRN PRN Reason: Insomnia Last Admin: 09/08/23 20:55 Dose: 50 mg Venlafaxine HCl (Venlafaxine Hcl Er 37.5 Mg Cap.Er.24h) 37.5 mg PO DAILY [facility] Last Admin: 09/10/23 09:36 Dose: 37.5 mg Allergies Allergies Allergy/AdvReac Type Severity Reaction Status Date / Time penicillamine [Cuprimine] Allergy Unknown Unknown Verified 09/03/23 18:08 [place]ARTAN Allergy Unknown Uncoded 09/03/23 18:08 SHRIMP Allergy Unknown Uncoded 09/03/23 18:09 Assessment & Plan Assessment & Plan (1) Schizoaffective disorder, bipolar type: Status: Acute Code(s): F25.0 - Schizoaffective disorder, bipolar type Plan /7: restart home medications. observe for improvement. modify regimen as indicated. 09/04: calm, cooperative. no change in presentation. continue current mgmt. 09/05: calm, cooperative. no change in presentation. continue current mgmt. 09/06: c/o depression. restart effexor XR 37.5 mg as of today, and zoloft 50 mg as of tomorrow (had been on zoloft 150 mg prior to admission). continue to hold Farxiga (NF in any event) as per hospitalist recs. 09/07: continue tx. 09/08: remains flat, slowed, c/o depression. increase zoloft to 100 mg daily as of today. 09/09: no change in presentation. check [facility]. plan to increase zoloft back to outpt dosing of 150 mg daily as of thursday. 50-year-old female with history of type 2 diabetes and hypertension admitted to adult Psychiatry with consult placed to hospitalist service for medical H&P. The patient was transferred to our facility after being admitted to [facility] from 08/24-09/02 due to catatonia and selective mutism ultimately admitted to Medicine due to acute kidney injury. #Mood disoder/catatonia/mutism -plan per psychiatry #Acute kidney injury -discharge summary from [facility] reviewed. Creat around 1.8, ?new baseline. Renal US unremarkable. Outpt follow up per nephrology ([facility]) -continue avoiding SGLT2 -Repeat BMP 1 week per nephro. If needed, consider nephrology consult ([facility] group) #TYpe 2 diabetes -monitor POC, recommend diabetic diet -continue metformin. Add ademlog on ss if needed. Hold farxiga or any SGLT2 #HTN -continue amlodipine Thank you for allowing me to participate in this consult. Signing off at this time. Please do not hesitate to call for further questions or for any acute medical issues or concern Reason for continued inpatient stay Substantial Risk for: inability to function and rapid decompensation Time Spent With Patient Time: Total time managing care of this patient today __25__ minutes.
[2023-09-10 12:48] VITALS: BMI 31.1
[2023-09-10 20:00] VITALS: BP 127/67; PULSE 87; RESP 16; TEMP 36.7; O2SAT 95
[2023-09-10 21:13] LABS: Glucose, Whole Blood 289 mg/dL (60-115)
[2023-09-10] MEDS: Atorvastatin Calcium 40 MG TABLET PO (21:21)
[2023-09-10] MEDS: OLANZapine 10 MG TABLET 15 MG PO (21:21)
[2023-09-11 07:20] VITALS: BP 109/58; PULSE 71; RESP 12; TEMP 36.4; O2SAT 90
[2023-09-11 08:00] VITALS: BP 109/58; PULSE 71; RESP 18; TEMP 525.3; TEMP 977.6; O2SAT 92
[2023-09-11 08:32] LABS: Glucose, Whole Blood 166 mg/dL (60-115)
[2023-09-11] MEDS: polyethylene glycoL 3350 17 GM POWD.PACK PO ×2 (09:36→22:29)
[2023-09-11] MEDS: Tamsulosin HCL 0.4 MG CAPSULE PO (09:37)
[2023-09-11] MEDS: Sennosides 8.6 MG TABLET 34.4 MG PO (09:37)
[2023-09-11] MEDS: Folic Acid 1 MG TABLET PO (09:37)
[2023-09-11] MEDS: Thiamine HCL 100 MG TABLET PO ×2 (09:38→21:21)
[2023-09-11] MEDS: Pyridoxine HCl (Vitamin B6) 50 MG TABLET PO (09:38)
[2023-09-11] MEDS: metFORMIN HCl 500 MG TABLET PO ×2 (09:38→21:21)
[2023-09-11] MEDS: Venlafaxine HCl ER 37.5 MG CAP.ER.24H PO (09:38)
[2023-09-11] MEDS: OXcarbazepine 300 MG TABLET PO ×2 (09:38→21:20)
[2023-09-11] MEDS: Sertraline HCL 100 MG TABLET PO (09:38)
[2023-09-11 09:39] VITALS: BP 109/68
[2023-09-11] MEDS: amLODIPine Besylate 5 MG TABLET PO (09:39)
--- NOTE | 2023-09-11 10:55 | P.PNPSI_ITS ---
Subjective Subjective Date of Service: 09/11/23 Reason For Visit: schizoaffective disorder Interim History: calm, cooperative. lying in bed. reports her mood as happy, although inconsistent with affect and behavior. encouraged to attend groups and engage with OT on MoCA. per staff, dep/anx 8 eves. mood so-so. declining groups, declined to do MoCA. +meds. pleasant. slept 9 hours. Mental Status Exam Mental Status Exam Narrative: adequately dressed and groomed. cooperative. general PMR. speech soft, slowed, delayed. thoughts linear and logical, but paucity of thought. affect flat. mood happy. no SI/SIBI/HI/AVH expressed. Diagnostics Vital Signs (24Hr): Vital Signs - 24 hr 09/10/23 20:00 09/11/23 07:20 09/11/23 08:00 Temperature 98.1 F 97.6 F 977.6 F H Pulse Rate 87 71 71 Respiratory Rate 16 12 18 Blood Pressure 127/67 109/58 L 109/58 L Pulse Oximetry 95 90 L 92 Oxygen Delivery Method Room Air Room Air Room Air 09/11/23 09:39 Temperature Pulse Rate Respiratory Rate Blood Pressure 109/68 Pulse Oximetry Oxygen Delivery Method BMI result Body Mass Index 31.1 Labs 09/04/23 08:38 Labs: Laboratory Results - last 48 hr 09/09/23 09/10/23 09/10/23 20:56 08:11 21:09 POC Glucose 316 H 141 H 289 H 09/11/23 08:27 POC Glucose 166 H Medications Medications Current Medications Acetaminophen (Acetaminophen 325 Mg Tablet) 650 mg PO Q6H PRN PRN Reason: Headache/Pain Mild Scale (1-3) Last Admin: 09/04/23 20:38 Dose: 650 mg Al Hydroxide/Mg Hydroxide (Magnesium Hydrox/Alum Hydrox 30 Ml Oral.Susp) 30 ml PO Q6H PRN PRN Reason: Heartburn/Nausea Amlodipine Besylate (Amlodipine Besylate 5 Mg Tablet) 5 mg PO DAILY [facility] Last Admin: 09/11/23 09:39 Dose: 5 mg Atorvastatin Calcium (Atorvastatin Calcium 40 Mg Tablet) 40 mg PO BEDTIME [facility] Last Admin: 09/10/23 21:21 Dose: 40 mg Folic Acid (Folic Acid 1 Mg Tablet) 1 mg PO DAILY [facility] Last Admin: 09/11/23 09:37 Dose: 1 mg Hydroxyzine HCl (Hydroxyzine Hcl 25 Mg Tablet) 25 mg PO Q6H PRN PRN Reason: Anxiety Magnesium Hydroxide (Milk Of Magnesia 30 Ml Oral.Susp) 30 ml PO DAILY PRN PRN Reason: Constipation Metformin HCl (Metformin Hcl 500 Mg Tablet) 500 mg PO BID [facility] Last Admin: 09/11/23 09:38 Dose: 500 mg Olanzapine (Olanzapine 10 Mg Tablet) 15 mg PO BEDTIME [facility] Last Admin: 09/10/23 21:21 Dose: 15 mg Oxcarbazepine (Oxcarbazepine 300 Mg Tablet) 300 mg PO BID [facility] Last Admin: 09/11/23 09:38 Dose: 300 mg Polyethylene Glycol (Polyethylene Glycol 3350 17 Gm Powd.Pack) 17 gm PO BID [facility] Last Admin: 09/11/23 09:36 Dose: 17 gm Pyridoxine HCl (Pyridoxine Hcl (Vitamin B6) 50 Mg Tablet) 50 mg PO DAILY [facility] Last Admin: 09/11/23 09:38 Dose: 50 mg Senna (Sennosides 8.6 Mg Tablet) 34.4 mg PO DAILY [facility] Last Admin: 09/11/23 09:37 Dose: 34.4 mg Sertraline HCl (Sertraline Hcl 50 Mg Tablet) 150 mg PO DAILY [facility] Tamsulosin HCl (Tamsulosin Hcl 0.4 Mg Capsule) 0.4 mg PO DAILY [facility] Last Admin: 09/11/23 09:37 Dose: 0.4 mg Thiamine HCl (Thiamine Hcl 100 Mg Tablet) 100 mg PO BID [facility] Last Admin: 09/11/23 09:38 Dose: 100 mg Trazodone HCl (Trazodone Hcl 50 Mg Tablet) 50 mg PO BEDTIME MRX1 PRN PRN Reason: Insomnia Last Admin: 09/08/23 20:55 Dose: 50 mg Venlafaxine HCl (Venlafaxine Hcl Er 37.5 Mg Cap.Er.24h) 37.5 mg PO DAILY [facility] Last Admin: 09/11/23 09:38 Dose: 37.5 mg Allergies Allergies Allergy/AdvReac Type Severity Reaction Status Date / Time penicillamine [Cuprimine] Allergy Unknown Unknown Verified 09/03/23 18:08 LOSARTAN Allergy Unknown Uncoded 09/03/23 18:08 SHRIMP Allergy Unknown Uncoded 09/03/23 18:09 Assessment & Plan Assessment & Plan (1) Schizoaffective disorder, bipolar type: Status: Acute Code(s): F25.0 - Schizoaffective disorder, bipolar type Plan 09/03: restart home medications. observe for improvement. modify regimen as indicated. 09/04: calm, cooperative. no change in presentation. continue current mgmt. 09/05: calm, cooperative. no change in presentation. continue current mgmt. 09/06: c/o depression. restart effexor XR 37.5 mg as of today, and zoloft 50 mg as of tomorrow (had been on zoloft 150 mg prior to admission). continue to hold Farxiga (NF in any event) as per hospitalist recs. 09/07: continue tx. 09/08: remains flat, slowed, c/o depression. increase zoloft to 100 mg daily as of today. 09/09: no change in presentation. check MoCA. plan to increase zoloft back to outpt dosing of 150 mg daily as of thursday. 09/10: not attending groups, declined MoCA yesterday. try again today. increase zoloft to 150 tomorrow. check labs. 50-year-old female with history of type 2 diabetes and hypertension admitted to adult Psychiatry with consult placed to hospitalist service for medical H&P. The patient was transferred to our facility after being admitted to [facility] from 08/24-09/02 due to catatonia and selective mutism ultimately admitted to Medicine due to acute kidney injury. #Mood disoder/catatonia/mutism -plan per psychiatry #Acute kidney injury -discharge summary from [facility] reviewed. Creat around 1.8, ?new baseline. Renal US unremarkable. Outpt follow up per nephrology ([facility]) -continue avoiding SGLT2 -Repeat BMP 1 week per nephro. If needed, consider nephrology consult ([facility] group) #TYpe 2 diabetes -monitor POC, recommend diabetic diet -continue metformin. Add ademlog on ss if needed. Hold farxiga or any SGLT2 #HTN -continue amlodipine Thank you for allowing me to participate in this consult. Signing off at this time. Please do not hesitate to call for further questions or for any acute medical issues or concern Reason for continued inpatient stay Substantial Risk for: harm to self, inability to function and rapid decompensation Time Spent With Patient Time: Total time managing care of this patient today __25__ minutes.
[2023-09-11 12:03] VITALS: O2SAT 98
--- NOTE | 2023-09-11 13:12 | PC.NURSE ---
Pt was administered MOCA on 09/11/2023. Pt scored 5/30, indicative of severe cognitive impairment. Provider was notified and assessment was filed in chart.
[2023-09-11 14:06] LABS: Creatinine Clr Calc Pharmacy 49.4; Estimated Glomerular Filt Rate 39
[2023-09-11 14:12] LABS: Alanine Aminotransferase 105 U/L (0-31); Albumin Level 3.6 g/dL (3.5-5.0); Alkaline Phosphatase 132 U/L (39-117); Anion Gap 14 (12-20); Aspartate Amino Transferase 62 U/L (5-31); Bilirubin Direct < 0.2 mg/dL (0.0-0.5); Bilirubin Total 0.2 mg/dL (0.0-1.0); Blood Urea Nitrogen 22 mg/dL (9-16); C Reactive Protein 0.78 mg/dL (< or = 0.50); Calcium 10.1 mg/dL (8.4-10.2); Carbon Dioxide 28 mmol/L (22-29); Chloride 96 mmol/L (96-108); Creatinine Clr Calc Pharmacy 50.2; Estimated Glomerular Filt Rate 40; Glucose Random 272 mg/dL (60-115); Potassium 4.3 mmol/L (3.3-5.1); Sodium 134 mmol/L (135-145); Total Protein 7.3 g/dL (6.5-8.0)
[2023-09-11 20:15] LABS: Glucose, Whole Blood 384 mg/dL (60-115)
[2023-09-11 20:25] VITALS: BP 136/84; PULSE 94; RESP 16; TEMP 36.6; O2SAT 99
[2023-09-11] MEDS: OLANZapine 10 MG TABLET 15 MG PO (21:20)
[2023-09-11] MEDS: Atorvastatin Calcium 40 MG TABLET PO (21:21)
[2023-09-11] MEDS: traZODone HCL 50 MG TABLET PO (21:21)
[2023-09-11] MEDS: hydrOXYzine HCL 25 MG TABLET PO (21:34)
[2023-09-11 21:43] LABS: Glucose, Whole Blood 383 mg/dL (60-115)
[2023-09-11] MEDS: Insulin Glargine,Hum.rec.anlog 100 UNIT/ML 10 ML VIAL 12 UNIT SUBCUT (22:28)
[2023-09-11] MEDS: Insulin Lispro 100 UNIT/ML 3 ML VIAL SUBCUT (22:29)
[2023-09-12 00:48] LABS: Glucose, Whole Blood 310 mg/dL (60-115)
[2023-09-12 07:10] VITALS: BP 104/59; PULSE 71; RESP 14; TEMP 36.8; O2SAT 95
[2023-09-12 08:08] LABS: Glucose, Whole Blood 181 mg/dL (60-115)
--- NOTE | 2023-09-12 09:03 | P.PNPSI_ITS ---
Subjective Subjective Date of Service: 09/12/23 Reason For Visit: schizoaffective disorder Subjective Notes: Conditional Voluntary Interim History: Patient was seen and discussed in rounds today. Records and plans were reviewed. She continues to have some depression and anxiety with flat affect. Eating and sleeping adequately. Her POC was changed to 4 times a day and has been put on insulin and a sliding scale. Slept more than 6 hours. Generally feeling better. No SI. No changes were made today Medication Compliance: Yes Side effects from medications: No Attending Groups: No Review of Systems Review of Systems Yes all other systems are reviewed and are negative Mental Status Exam Mental Status Exam Narrative: In today's visit she is alert, pleasant and interactive. Soft-spoken speech. Little eye contact. No acute signs of psychosis. Cognitively she has slow thought processes. No active SI. No delusions. Judgment is grossly intact Diagnostics Vital Signs (24Hr): Vital Signs - 24 hr 09/11/23 09:39 09/11/23 12:03 09/11/23 20:25 Temperature 97.8 F Pulse Rate 94 Respiratory Rate 16 Blood Pressure 109/68 136/84 Pulse Oximetry 98 99 Oxygen Delivery Method Room Air Room Air 09/12/23 07:10 Temperature 98.2 F Pulse Rate 71 Respiratory Rate 14 Blood Pressure 104/59 L Pulse Oximetry 95 Oxygen Delivery Method Room Air BMI result Body Mass Index 31.1 Labs 09/11/23 13:44 Labs: Laboratory Results - last 48 hr 09/10/23 09/11/23 09/11/23 21:09 08:27 13:44 Sodium 134 L Potassium 4.3 Chloride 96 Carbon Dioxide 28 Anion Gap 14 BUN 22 H Creatinine 1.38 Estim Creat Clear Calc Estimated GFR POC Glucose 289 H 166 H Random Glucose Calcium Total Bilirubin Direct Bilirubin AST ALT Alkaline Phosphatase C-Reactive Protein Total Protein Albumin 09/11/23 09/11/23 09/11/23 13:44 13:44 13:44 Sodium Potassium Chloride Carbon Dioxide Anion Gap BUN Creatinine 1.36 Estim Creat Clear Calc 49.4 50.2 Estimated GFR 39 40 POC Glucose Random Glucose 272 H Calcium 10.1 Total Bilirubin 0.2 Direct Bilirubin < 0.2 AST 62 H ALT 105 H Alkaline Phosphatase 132 H C-Reactive Protein 0.78 H Total Protein 7.3 Albumin 3.6 06/14/24 06/14/24 06/15/24 20:05 21:38 00:39 Sodium Potassium Chloride Carbon Dioxide Anion Gap BUN Creatinine Estim Creat Clear Calc Estimated GFR POC Glucose 384 H* 383 H* 310 H Random Glucose Calcium Total Bilirubin Direct Bilirubin AST ALT Alkaline Phosphatase C-Reactive Protein Total Protein Albumin 09/12/23 08:01 Sodium Potassium Chloride Carbon Dioxide Anion Gap BUN Creatinine Estim Creat Clear Calc Estimated GFR POC Glucose 181 H Random Glucose Calcium Total Bilirubin Direct Bilirubin AST ALT Alkaline Phosphatase C-Reactive Protein Total Protein Albumin Medications Medications Current Medications Acetaminophen (Acetaminophen 325 Mg Tablet) 650 mg PO Q6H PRN PRN Reason: Headache/Pain Mild Scale (1-3) Last Admin: 09/04/23 20:38 Dose: 650 mg Al Hydroxide/Mg Hydroxide (Magnesium Hydrox/Alum Hydrox 30 Ml Oral.Susp) 30 ml PO Q6H PRN PRN Reason: Heartburn/Nausea Amlodipine Besylate (Amlodipine Besylate 5 Mg Tablet) 5 mg PO DAILY [facility] Last Admin: 09/11/23 09:39 Dose: 5 mg Atorvastatin Calcium (Atorvastatin Calcium 40 Mg Tablet) 40 mg PO BEDTIME [facility] Last Admin: 09/11/23 21:21 Dose: 40 mg Folic Acid (Folic Acid 1 Mg Tablet) 1 mg PO DAILY [facility] Last Admin: 09/11/23 09:37 Dose: 1 mg Glucose (Glucose Gel 15 Gm Gel..Gram.) 15 gm PO Q15M PRN; Protocol PRN Reason: per Hypoglycemia Standing Ord. Hydroxyzine HCl (Hydroxyzine Hcl 25 Mg Tablet) 25 mg PO Q6H PRN PRN Reason: Anxiety Last Admin: 09/11/23 21:34 Dose: 25 mg Dextrose (D10) 250 mls @ 750 mls/hr IV Q15M PRN; Protocol PRN Reason: per Hypoglycemia Standing Ord. Insulin Glargine (Insulin Glargine,Hum.Rec.Anlog 100 Unit/Ml 10 Ml Vial) 12 unit SUBCUT BEDTIME [facility] Last Admin: 09/11/23 22:28 Dose: 12 unit Insulin Human Lispro (Insulin Lispro 100 Unit/Ml 3 Ml Vial) 0 unit SUBCUT QIDACHS [facility]; Protocol Stop: 09/12/23 21:47 Last Admin: 09/11/23 22:29 Dose: 10 unit Magnesium Hydroxide (Milk Of Magnesia 30 Ml Oral.Susp) 30 ml PO DAILY PRN PRN Reason: Constipation Metformin HCl (Metformin Hcl 500 Mg Tablet) 500 mg PO BID [facility] Last Admin: 09/11/23 21:21 Dose: 500 mg Olanzapine (Olanzapine 10 Mg Tablet) 15 mg PO BEDTIME [facility] Last Admin: 09/11/23 21:20 Dose: 15 mg Oxcarbazepine (Oxcarbazepine 300 Mg Tablet) 300 mg PO BID [facility] Last Admin: 09/11/23 21:20 Dose: 300 mg Polyethylene Glycol (Polyethylene Glycol 3350 17 Gm Powd.Pack) 17 gm PO BID [facility] Last Admin: 09/11/23 22:29 Dose: 17 gm Pyridoxine HCl (Pyridoxine Hcl (Vitamin B6) 50 Mg Tablet) 50 mg PO DAILY [facility] Last Admin: 09/11/23 09:38 Dose: 50 mg Senna (Sennosides 8.6 Mg Tablet) 34.4 mg PO DAILY [facility] Last Admin: 09/11/23 09:37 Dose: 34.4 mg Sertraline HCl (Sertraline Hcl 50 Mg Tablet) 150 mg PO DAILY [facility] Tamsulosin HCl (Tamsulosin Hcl 0.4 Mg Capsule) 0.4 mg PO DAILY [facility] Last Admin: 09/11/23 09:37 Dose: 0.4 mg Thiamine HCl (Thiamine Hcl 100 Mg Tablet) 100 mg PO BID [facility] Last Admin: 09/11/23 21:21 Dose: 100 mg Trazodone HCl (Trazodone Hcl 50 Mg Tablet) 50 mg PO BEDTIME MRX1 PRN PRN Reason: Insomnia Last Admin: 09/11/23 21:21 Dose: 50 mg Venlafaxine HCl (Venlafaxine Hcl Er 37.5 Mg Cap.Er.24h) 37.5 mg PO DAILY [facility] Last Admin: 09/11/23 09:38 Dose: 37.5 mg Allergies Allergies Allergy/AdvReac Type Severity Reaction Status Date / Time penicillamine [Cuprimine] Allergy Unknown Unknown Verified 09/03/23 18:08 LOSARTAN Allergy Unknown Uncoded 09/03/23 18:08 SHRIMP Allergy Unknown Uncoded 09/03/23 18:09 Assessment & Plan Assessment & Plan (1) Schizoaffective disorder, bipolar type: Status: Acute Code(s): F25.0 - Schizoaffective disorder, bipolar type Plan 09/03: restart home medications. observe for improvement. modify regimen as indicated. 09/04: calm, cooperative. no change in presentation. continue current mgmt. 09/05: calm, cooperative. no change in presentation. continue current mgmt. 09/06: c/o depression. restart effexor XR 37.5 mg as of today, and zoloft 50 mg as of tomorrow (had been on zoloft 150 mg prior to admission). continue to hold Farxiga (NF in any event) as per hospitalist recs. 09/07: continue tx. 09/08: remains flat, slowed, c/o depression. increase zoloft to 100 mg daily as of today. 09/09: no change in presentation. check MoCA. plan to increase zoloft back to outpt dosing of 150 mg daily as of thursday. 09/10: not attending groups, declined MoCA yesterday. try again today. increase zoloft to 150 tomorrow. check labs. 09/11: Continue current regimen and plans 50-year-old female with history of type 2 diabetes and hypertension admitted to adult Psychiatry with consult placed to hospitalist service for medical H&P. The patient was transferred to our facility after being admitted to [facility] from 08/24-09/02 due to catatonia and selective mutism ultimately admitted to Medicine due to acute kidney injury. #Mood disoder/catatonia/mutism -plan per psychiatry #Acute kidney injury -discharge summary from [facility] reviewed. Creat around 1.8, ?new baseline. Renal US unremarkable. Outpt follow up per nephrology ([facility]) -continue avoiding SGLT2 -Repeat BMP 1 week per nephro. If needed, consider nephrology consult ([facility] group) #TYpe 2 diabetes -monitor POC, recommend diabetic diet -continue metformin. Add ademlog on ss if needed. Hold farxiga or any SGLT2 #HTN -continue amlodipine Thank you for allowing me to participate in this consult. Signing off at this time. Please do not hesitate to call for further questions or for any acute medical issues or concern Reason for continued inpatient stay Substantial Risk for: med/psych decompensation Time Spent With Patient Time: Total time managing care of this patient today ____ minutes.
[2023-09-12] MEDS: polyethylene glycoL 3350 17 GM POWD.PACK PO ×2 (09:41→21:08)
[2023-09-12] MEDS: Pyridoxine HCl (Vitamin B6) 50 MG TABLET PO (09:41)
[2023-09-12] MEDS: Folic Acid 1 MG TABLET PO (09:41)
[2023-09-12] MEDS: metFORMIN HCl 500 MG TABLET PO ×2 (09:41→21:09)
[2023-09-12] MEDS: Sennosides 8.6 MG TABLET 34.4 MG PO (09:41)
[2023-09-12] MEDS: OXcarbazepine 300 MG TABLET PO ×2 (09:41→21:09)
[2023-09-12] MEDS: Insulin Lispro 100 UNIT/ML 3 ML VIAL SUBCUT ×4 (09:41→21:12)
[2023-09-12 09:42] VITALS: BP 104/59
[2023-09-12] MEDS: Tamsulosin HCL 0.4 MG CAPSULE PO (09:42)
[2023-09-12] MEDS: Venlafaxine HCl ER 37.5 MG CAP.ER.24H PO (09:42)
[2023-09-12] MEDS: Thiamine HCL 100 MG TABLET PO ×2 (09:42→21:09)
[2023-09-12] MEDS: amLODIPine Besylate 5 MG TABLET PO (09:42)
[2023-09-12] MEDS: Sertraline HCL 50 MG TABLET 150 MG PO (09:43)
--- NOTE | 2023-09-12 11:35 | PM.EVENT ---
Event Note Date of Service: 09/12/23 Event Note: Patient with consistently elevated blood glucose levels while on the unit, as high as 384 on 09/11/2023. Patient previously on metformin 1000 mg b.i.d., but was reduced to 500 mg b.i.d. due to kidney function. Will start on on Lantus 12 units bedtime. Will monitor POC and titrate accordingly. Continue sliding scale insulin. Encourage diabetic diet and diabetic snacking. Time Spent With Patient Time: Total time managing care of this patient today ____ minutes.
[2023-09-12 13:20] LABS: Glucose, Whole Blood 191 mg/dL (60-115)
[2023-09-12 18:09] LABS: Glucose, Whole Blood 334 mg/dL (60-115)
[2023-09-12 20:00] VITALS: BP 114/71; PULSE 91; RESP 16; TEMP 36.8; O2SAT 96
[2023-09-12 20:26] LABS: Glucose, Whole Blood 296 mg/dL (60-115)
[2023-09-12] MEDS: OLANZapine 10 MG TABLET 15 MG PO (21:08)
[2023-09-12] MEDS: Atorvastatin Calcium 40 MG TABLET PO (21:09)
[2023-09-12] MEDS: Insulin Glargine,Hum.rec.anlog 100 UNIT/ML 10 ML VIAL 12 UNIT SUBCUT (21:10)
[2023-09-12] MEDS: traZODone HCL 50 MG TABLET PO (21:47)
[2023-09-13 08:14] LABS: Glucose, Whole Blood 159 mg/dL (60-115)
[2023-09-13 09:00] VITALS: BP 123/65; PULSE 67; RESP 16; TEMP 36.7; O2SAT 95
--- NOTE | 2023-09-13 09:37 | P.PNPSI_ITS ---
Subjective Subjective Date of Service: 09/13/23 Reason For Visit: schizoaffective disorder Subjective Notes: Conditional Voluntary Interim History: Patient was seen and discussed in rounds today. Records and plans were reviewed. She continues to be mostly isolative. Her blood sugars have been better. She is withdrawn. Moderate anxiety and depression present. No AVH. Eating and sleeping adequately. No complaints or side effects. No SI. No changes were made Medication Compliance: Yes Side effects from medications: No Attending Groups: No Review of Systems Review of Systems Yes all other systems are reviewed and are negative Mental Status Exam Mental Status Exam Narrative: In today's visit she is alert, pleasant and interactive. Soft-spoken speech. Little eye contact. No acute signs of psychosis. Cognitively she has slow thought processes. No active SI. No delusions. Judgment is grossly intact Diagnostics Vital Signs (24Hr): Vital Signs - 24 hr 09/12/23 09:42 09/12/23 20:00 Temperature 98.2 F Pulse Rate 91 Respiratory Rate 16 Blood Pressure 104/59 L 114/71 Pulse Oximetry 96 Oxygen Delivery Method Room Air BMI result Body Mass Index 31.1 Labs 09/11/23 13:44 Labs: Laboratory Results - last 48 hr 09/11/23 09/11/23 09/11/23 13:44 13:44 13:44 Sodium 134 L Potassium 4.3 Chloride 96 Carbon Dioxide 28 Anion Gap 14 BUN 22 H Creatinine 1.38 1.36 Estim Creat Clear Calc 49.4 50.2 Estimated GFR 39 POC Glucose Random Glucose Calcium Total Bilirubin Direct Bilirubin AST ALT Alkaline Phosphatase C-Reactive Protein Total Protein Albumin 09/11/23 09/11/23 09/11/23 13:44 20:05 21:38 Sodium Potassium Chloride Carbon Dioxide Anion Gap BUN Creatinine Estim Creat Clear Calc Estimated GFR 40 POC Glucose 384 H* 383 H* Random Glucose 272 H Calcium 10.1 Total Bilirubin 0.2 Direct Bilirubin < 0.2 AST 62 H ALT 105 H Alkaline Phosphatase 132 H C-Reactive Protein 0.78 H Total Protein 7.3 Albumin 3.6 09/12/23 09/12/23 09/12/23 00:39 08:01 12:37 Sodium Potassium Chloride Carbon Dioxide Anion Gap BUN Creatinine Estim Creat Clear Calc Estimated GFR POC Glucose 310 H 181 H 191 H Random Glucose Calcium Total Bilirubin Direct Bilirubin AST ALT Alkaline Phosphatase C-Reactive Protein Total Protein Albumin 09/12/23 09/12/23 09/13/23 17:58 20:06 07:51 Sodium Potassium Chloride Carbon Dioxide Anion Gap BUN Creatinine Estim Creat Clear Calc Estimated GFR POC Glucose 334 H 296 H 159 H Random Glucose Calcium Total Bilirubin Direct Bilirubin AST ALT Alkaline Phosphatase C-Reactive Protein Total Protein Albumin Medications Medications Current Medications Acetaminophen (Acetaminophen 325 Mg Tablet) 650 mg PO Q6H PRN PRN Reason: Headache/Pain Mild Scale (1-3) Last Admin: 09/04/23 20:38 Dose: 650 mg Al Hydroxide/Mg Hydroxide (Magnesium Hydrox/Alum Hydrox 30 Ml Oral.Susp) 30 ml PO Q6H PRN PRN Reason: Heartburn/Nausea Amlodipine Besylate (Amlodipine Besylate 5 Mg Tablet) 5 mg PO DAILY [facility] Last Admin: 09/12/23 09:42 Dose: 5 mg Atorvastatin Calcium (Atorvastatin Calcium 40 Mg Tablet) 40 mg PO BEDTIME [facility] Last Admin: 09/12/23 21:09 Dose: 40 mg Folic Acid (Folic Acid 1 Mg Tablet) 1 mg PO DAILY [facility] Last Admin: 09/12/23 09:41 Dose: 1 mg Glucose (Glucose Gel 15 Gm Gel..Gram.) 15 gm PO Q15M PRN; Protocol PRN Reason: per Hypoglycemia Standing Ord. Hydroxyzine HCl (Hydroxyzine Hcl 25 Mg Tablet) 25 mg PO Q6H PRN PRN Reason: Anxiety Last Admin: 09/11/23 21:34 Dose: 25 mg Dextrose (D10) 250 mls @ 750 mls/hr IV Q15M PRN; Protocol PRN Reason: per Hypoglycemia Standing Ord. Insulin Glargine (Insulin Glargine,Hum.Rec.Anlog 100 Unit/Ml 10 Ml Vial) 14 unit SUBCUT BEDTIME [facility] Magnesium Hydroxide (Milk Of Magnesia 30 Ml Oral.Susp) 30 ml PO DAILY PRN PRN Reason: Constipation Metformin HCl (Metformin Hcl 500 Mg Tablet) 500 mg PO BID [facility] Last Admin: 09/12/23 21:09 Dose: 500 mg Olanzapine (Olanzapine 10 Mg Tablet) 15 mg PO BEDTIME [facility] Last Admin: 09/12/23 21:08 Dose: 15 mg Oxcarbazepine (Oxcarbazepine 300 Mg Tablet) 300 mg PO BID [facility] Last Admin: 09/12/23 21:09 Dose: 300 mg Polyethylene Glycol (Polyethylene Glycol 3350 17 Gm Powd.Pack) 17 gm PO BID [facility] Last Admin: 09/12/23 21:08 Dose: 17 gm Pyridoxine HCl (Pyridoxine Hcl (Vitamin B6) 50 Mg Tablet) 50 mg PO DAILY [facility] Last Admin: 09/12/23 09:41 Dose: 50 mg Senna (Sennosides 8.6 Mg Tablet) 34.4 mg PO DAILY [facility] Last Admin: 09/12/23 09:41 Dose: 34.4 mg Sertraline HCl (Sertraline Hcl 50 Mg Tablet) 150 mg PO DAILY [facility] Last Admin: 09/12/23 09:43 Dose: 150 mg Tamsulosin HCl (Tamsulosin Hcl 0.4 Mg Capsule) 0.4 mg PO DAILY [facility] Last Admin: 09/12/23 09:42 Dose: 0.4 mg Thiamine HCl (Thiamine Hcl 100 Mg Tablet) 100 mg PO BID [facility] Last Admin: 09/12/23 21:09 Dose: 100 mg Trazodone HCl (Trazodone Hcl 50 Mg Tablet) 50 mg PO BEDTIME MRX1 PRN PRN Reason: Insomnia Last Admin: 09/12/23 21:47 Dose: 50 mg Venlafaxine HCl (Venlafaxine Hcl Er 37.5 Mg Cap.Er.24h) 37.5 mg PO DAILY [facility] Last Admin: 09/12/23 09:42 Dose: 37.5 mg Allergies Allergies Allergy/AdvReac Type Severity Reaction Status Date / Time penicillamine [Cuprimine] Allergy Unknown Unknown Verified 09/03/23 18:08 LOSARTAN Allergy Unknown Uncoded 09/03/23 18:08 SHRIMP Allergy Unknown Uncoded 09/03/23 18:09 Assessment & Plan Assessment & Plan (1) Schizoaffective disorder, bipolar type: Status: Acute Code(s): F25.0 - Schizoaffective disorder, bipolar type Plan 09/03: restart home medications. observe for improvement. modify regimen as indicated. 09/04: calm, cooperative. no change in presentation. continue current mgmt. 09/05: calm, cooperative. no change in presentation. continue current mgmt. 09/06: c/o depression. restart effexor XR 37.5 mg as of today, and zoloft 50 mg as of tomorrow (had been on zoloft 150 mg prior to admission). continue to hold Farxiga (NF in any event) as per hospitalist recs. 6/11: continue tx. 09/08: remains flat, slowed, c/o depression. increase zoloft to 100 mg daily as of today. 09/09: no change in presentation. check MoCA. plan to increase zoloft back to outpt dosing of 150 mg daily as of thursday. 09/10: not attending groups, declined MoCA yesterday. try again today. increase zoloft to 150 tomorrow. check labs. 09/11: Continue current regimen and plans 09/12: Continue current plans and regimen. 50-year-old female with history of type 2 diabetes and hypertension admitted to adult Psychiatry with consult placed to hospitalist service for medical H&P. The patient was transferred to our facility after being admitted to [facility] from 08/24-09/02 due to catatonia and selective mutism ultimately admitted to Medicine due to acute kidney injury. #Mood disoder/catatonia/mutism -plan per psychiatry #Acute kidney injury -discharge summary from [facility] reviewed. Creat around 1.8, ?new baseline. Renal US unremarkable. Outpt follow up per nephrology ([facility]) -continue avoiding SGLT2 -Repeat BMP 1 week per nephro. If needed, consider nephrology consult ([facility] group) #TYpe 2 diabetes -monitor POC, recommend diabetic diet -continue metformin. Add ademlog on ss if needed. Hold farxiga or any SGLT2 #HTN -continue amlodipine Thank you for allowing me to participate in this consult. Signing off at this time. Please do not hesitate to call for further questions or for any acute medical issues or concern Reason for continued inpatient stay Substantial Risk for: rapid decompensation Time Spent With Patient Time: Total time managing care of this patient today ____ minutes.
[2023-09-13] MEDS: polyethylene glycoL 3350 17 GM POWD.PACK PO (09:59)
[2023-09-13 10:01] VITALS: BP 123/65
[2023-09-13] MEDS: OXcarbazepine 300 MG TABLET PO ×2 (10:01→22:13)
[2023-09-13] MEDS: amLODIPine Besylate 5 MG TABLET PO (10:01)
[2023-09-13] MEDS: Folic Acid 1 MG TABLET PO (10:01)
[2023-09-13] MEDS: Thiamine HCL 100 MG TABLET PO ×2 (10:01→22:13)
[2023-09-13] MEDS: Sennosides 8.6 MG TABLET 34.4 MG PO (10:01)
[2023-09-13] MEDS: Sertraline HCL 50 MG TABLET 150 MG PO (10:01)
[2023-09-13] MEDS: Pyridoxine HCl (Vitamin B6) 50 MG TABLET PO (10:01)
[2023-09-13] MEDS: Tamsulosin HCL 0.4 MG CAPSULE PO (10:01)
[2023-09-13] MEDS: Venlafaxine HCl ER 37.5 MG CAP.ER.24H PO (10:02)
[2023-09-13] MEDS: metFORMIN HCl 500 MG TABLET PO ×2 (10:02→22:13)
[2023-09-13 12:51] LABS: Glucose, Whole Blood 300 mg/dL (60-115)
[2023-09-13 17:38] LABS: Glucose, Whole Blood 317 mg/dL (60-115)
[2023-09-13 20:00] VITALS: BP 130/76; PULSE 82; RESP 16; TEMP 36.5; O2SAT 99
[2023-09-13 21:42] LABS: Glucose, Whole Blood 350 mg/dL (60-115)
[2023-09-13] MEDS: Insulin Glargine,Hum.rec.anlog 100 UNIT/ML 10 ML VIAL 16 UNIT SUBCUT (22:09)
[2023-09-13] MEDS: OLANZapine 10 MG TABLET 15 MG PO (22:11)
[2023-09-13] MEDS: Atorvastatin Calcium 40 MG TABLET PO (22:13)
[2023-09-13] MEDS: traZODone HCL 50 MG TABLET PO (22:19)
--- NOTE | 2023-09-14 01:51 | PC.NURSE ---
POC read 350mg/dl @ 2100, PRN insulin 6 units given and oncall hospitalist notified.
[2023-09-14 07:55] VITALS: BP 120/59; PULSE 72; RESP 18; TEMP 36.9; O2SAT 96
[2023-09-14 08:00] VITALS: BP 120/59; PULSE 72; RESP 20; TEMP 36.9; O2SAT 96
[2023-09-14 08:58] LABS: Glucose, Whole Blood 137 mg/dL (60-115)
[2023-09-14] MEDS: Sennosides 8.6 MG TABLET 34.4 MG PO (09:51)
[2023-09-14 09:52] VITALS: BP 120/59
[2023-09-14] MEDS: amLODIPine Besylate 5 MG TABLET PO (09:52)
[2023-09-14] MEDS: Venlafaxine HCl ER 37.5 MG CAP.ER.24H PO (09:52)
[2023-09-14] MEDS: Tamsulosin HCL 0.4 MG CAPSULE PO (09:52)
[2023-09-14] MEDS: Folic Acid 1 MG TABLET PO (09:52)
[2023-09-14] MEDS: metFORMIN HCl 500 MG TABLET PO ×2 (09:52→21:31)
[2023-09-14] MEDS: Pyridoxine HCl (Vitamin B6) 50 MG TABLET PO (09:52)
[2023-09-14] MEDS: Sertraline HCL 50 MG TABLET 150 MG PO (09:52)
[2023-09-14] MEDS: OXcarbazepine 300 MG TABLET PO ×2 (09:52→21:32)
[2023-09-14] MEDS: Thiamine HCL 100 MG TABLET PO ×2 (09:52→21:32)
[2023-09-14 12:24] LABS: Glucose, Whole Blood 293 mg/dL (60-115)
[2023-09-14] MEDS: Insulin Lispro 100 UNIT/ML 3 ML VIAL SUBCUT ×3 (12:29→22:31)
--- NOTE | 2023-09-14 13:48 | HO.PSYCHPN ---
Subjective Subjective Date of Service: 09/14/23 Reason For Visit: schizoaffective disorder Interim History: sits up, more energetic and expressive. states her mood is OK. denies any safety concerns. says she is interested in discussing discharge and asks to speak with SW for help with house. reminded she already has an apartment. she then asks for help with VNA services. MD informs her he will speak with SW and plan to discharge in near future. per staff, taking meds. withdrawn. visible. slept 7-8 hours. Mental Status Exam Mental Status Exam Narrative: adequately dressed and groomed. cooperative. less PMR. speech soft, slowed, not delayed. thoughts linear and logical. affect flexible. mood OK with that. no SI/SIBI/HI/AVH. Diagnostics Vital Signs (24Hr): Vital Signs - 24 hr 09/13/23 20:00 09/14/23 07:55 09/14/23 08:00 Temperature 97.7 F 98.5 F 98.5 F Pulse Rate 82 72 72 Respiratory Rate 16 18 20 Blood Pressure 130/76 120/59 L 120/59 L Pulse Oximetry 99 96 96 Oxygen Delivery Method Room Air Room Air 09/14/23 09:52 Temperature Pulse Rate Respiratory Rate Blood Pressure 120/59 L Pulse Oximetry Oxygen Delivery Method BMI result Body Mass Index 31.1 Labs 09/11/23 13:44 Labs: Laboratory Results - last 48 hr 09/12/23 09/12/23 09/13/23 17:58 20:06 07:51 POC Glucose 334 H 296 H 159 H 09/13/23 09/13/23 09/13/23 12:43 17:34 21:37 POC Glucose 300 H 317 H 350 H* 09/14/23 09/14/23 08:53 12:20 POC Glucose 137 H 293 H Medications Medications Current Medications Acetaminophen (Acetaminophen 325 Mg Tablet) 650 mg PO Q6H PRN PRN Reason: Headache/Pain Mild Scale (1-3) Last Admin: 09/04/23 20:38 Dose: 650 mg Al Hydroxide/Mg Hydroxide (Magnesium Hydrox/Alum Hydrox 30 Ml Oral.Susp) 30 ml PO Q6H PRN PRN Reason: Heartburn/Nausea Amlodipine Besylate (Amlodipine Besylate 5 Mg Tablet) 5 mg PO DAILY COUNTS INCLUDE 234 BEDS AT THE [facility] Last Admin: 09/14/23 09:52 Dose: 5 mg Atorvastatin Calcium (Atorvastatin Calcium 40 Mg Tablet) 40 mg PO BEDTIME COUNTS INCLUDE 234 BEDS AT THE [facility] Last Admin: 09/13/23 22:13 Dose: 40 mg Folic Acid (Folic Acid 1 Mg Tablet) 1 mg PO DAILY COUNTS INCLUDE 234 BEDS AT THE [facility] Last Admin: 09/14/23 09:52 Dose: 1 mg Glucose (Glucose Gel 15 Gm Gel..Gram.) 15 gm PO Q15M PRN; Protocol PRN Reason: per Hypoglycemia Standing Ord. Glucose (Glucose Gel 15 Gm Gel..Gram.) 15 gm PO Q15M PRN; Protocol PRN Reason: per Hypoglycemia Standing Ord. Hydroxyzine HCl (Hydroxyzine Hcl 25 Mg Tablet) 25 mg PO Q6H PRN PRN Reason: Anxiety Last Admin: 09/11/23 21:34 Dose: 25 mg Dextrose (D10) 250 mls @ 750 mls/hr IV Q15M PRN; Protocol PRN Reason: per Hypoglycemia Standing Ord. Dextrose (D10) 250 mls @ 750 mls/hr IV Q15M PRN; Protocol PRN Reason: per Hypoglycemia Standing Ord. Insulin Glargine (Insulin Glargine,Hum.Rec.Anlog 100 Unit/Ml 10 Ml Vial) 16 unit SUBCUT BEDTIME COUNTS INCLUDE 234 BEDS AT THE [facility] Last Admin: 09/13/23 22:09 Dose: 16 unit Insulin Human Lispro (Insulin Lispro 100 Unit/Ml 3 Ml Vial) 0 unit SUBCUT TIDWM COUNTS INCLUDE 234 BEDS AT THE [facility]; Protocol Stop: 09/14/23 22:28 Magnesium Hydroxide (Milk Of Magnesia 30 Ml Oral.Susp) 30 ml PO DAILY PRN PRN Reason: Constipation Metformin HCl (Metformin Hcl 500 Mg Tablet) 500 mg PO BID COUNTS INCLUDE 234 BEDS AT THE [facility] Last Admin: 09/14/23 09:52 Dose: 500 mg Olanzapine (Olanzapine 10 Mg Tablet) 15 mg PO BEDTIME COUNTS INCLUDE 234 BEDS AT THE [facility] Last Admin: 09/13/23 22:11 Dose: 15 mg Oxcarbazepine (Oxcarbazepine 300 Mg Tablet) 300 mg PO BID COUNTS INCLUDE 234 BEDS AT THE [facility] Last Admin: 09/14/23 09:52 Dose: 300 mg Polyethylene Glycol (Polyethylene Glycol 3350 17 Gm Powd.Pack) 17 gm PO BID COUNTS INCLUDE 234 BEDS AT THE [facility] Last Admin: 09/14/23 09:53 Dose: Not Given Pyridoxine HCl (Pyridoxine Hcl (Vitamin B6) 50 Mg Tablet) 50 mg PO DAILY COUNTS INCLUDE 234 BEDS AT THE [facility] Last Admin: 09/14/23 09:52 Dose: 50 mg Senna (Sennosides 8.6 Mg Tablet) 34.4 mg PO DAILY COUNTS INCLUDE 234 BEDS AT THE [facility] Last Admin: 09/14/23 09:51 Dose: 34.4 mg Sertraline HCl (Sertraline Hcl 50 Mg Tablet) 150 mg PO DAILY COUNTS INCLUDE 234 BEDS AT THE [facility] Last Admin: 09/14/23 09:52 Dose: 150 mg Tamsulosin HCl (Tamsulosin Hcl 0.4 Mg Capsule) 0.4 mg PO DAILY COUNTS INCLUDE 234 BEDS AT THE [facility] Last Admin: 09/14/23 09:52 Dose: 0.4 mg Thiamine HCl (Thiamine Hcl 100 Mg Tablet) 100 mg PO BID COUNTS INCLUDE 234 BEDS AT THE [facility] Last Admin: 09/14/23 09:52 Dose: 100 mg Trazodone HCl (Trazodone Hcl 50 Mg Tablet) 50 mg PO BEDTIME MRX1 PRN PRN Reason: Insomnia Last Admin: 09/13/23 22:19 Dose: 50 mg Venlafaxine HCl (Venlafaxine Hcl Er 37.5 Mg Cap.Er.24h) 37.5 mg PO DAILY COUNTS INCLUDE 234 BEDS AT THE [facility] Last Admin: 09/14/23 09:52 Dose: 37.5 mg Allergies Allergies Allergy/AdvReac Type Severity Reaction Status Date / Time penicillamine [Cuprimine] Allergy Unknown Unknown Verified 09/03/23 18:08 LOSARTAN Allergy Unknown Uncoded 09/03/23 18:08 SHRIMP Allergy Unknown Uncoded 09/03/23 18:09 Assessment & Plan Assessment & Plan (1) Schizoaffective disorder, bipolar type: Status: Acute Code(s): F25.0 - Schizoaffective disorder, bipolar type Plan 09/03: restart home medications. observe for improvement. modify regimen as indicated. 09/04: calm, cooperative. no change in presentation. continue current mgmt. 09/05: calm, cooperative. no change in presentation. continue current mgmt. 09/06: c/o depression. restart effexor XR 37.5 mg as of today, and zoloft 50 mg as of tomorrow (had been on zoloft 150 mg prior to admission). continue to hold Farxiga (NF in any event) as per hospitalist recs. 09/07: continue tx. 09/08: remains flat, slowed, c/o depression. increase zoloft to 100 mg daily as of today. 09/09: no change in presentation. check MoCA. plan to increase zoloft back to outpt dosing of 150 mg daily as of thursday. 09/10: not attending groups, declined MoCA yesterday. try again today. increase zoloft to 150 tomorrow. check labs. 09/11: Continue current regimen and plans 09/12: Continue current plans and regimen. 09/13: asking about discharge. appears much more animated, expressive, less PMR than last week. MoCA 08/26 last week. ACLS requested. planning to discharge home in the next several days. 50-year-old female with history of type 2 diabetes and hypertension admitted to adult Psychiatry with consult placed to hospitalist service for medical H&P. The patient was transferred to our facility after being admitted to [facility] from 08/24-09/02 due to catatonia and selective mutism ultimately admitted to Medicine due to acute kidney injury. #Mood disoder/catatonia/mutism -plan per psychiatry #Acute kidney injury -discharge summary from [facility] reviewed. Creat around 1.8, ?new baseline. Renal US unremarkable. Outpt follow up per nephrology ([facility]) -continue avoiding SGLT2 -Repeat BMP 1 week per nephro. If needed, consider nephrology consult ([facility] group) #TYpe 2 diabetes -monitor POC, recommend diabetic diet -continue metformin. Add ademlog on ss if needed. Hold farxiga or any SGLT2 #HTN -continue amlodipine Thank you for allowing me to participate in this consult. Signing off at this time. Please do not hesitate to call for further questions or for any acute medical issues or concern Reason for continued inpatient stay Substantial Risk for: rapid decompensation Time Spent With Patient Time: Total time managing care of this patient today __25__ minutes.
[2023-09-14 17:51] LABS: Glucose, Whole Blood 352 mg/dL (60-115)
[2023-09-14 20:00] VITALS: BP 125/68; PULSE 86; RESP 18; TEMP 36.1; O2SAT 99
[2023-09-14 20:55] LABS: Glucose, Whole Blood 368 mg/dL (60-115)
[2023-09-14] MEDS: OLANZapine 10 MG TABLET 15 MG PO (21:30)
[2023-09-14] MEDS: traZODone HCL 50 MG TABLET PO (21:32)
[2023-09-14] MEDS: Atorvastatin Calcium 40 MG TABLET PO (21:32)
[2023-09-14] MEDS: polyethylene glycoL 3350 17 GM POWD.PACK PO (21:33)
[2023-09-14] MEDS: Insulin Glargine,Hum.rec.anlog 100 UNIT/ML 10 ML VIAL 16 UNIT SUBCUT (22:30)
--- NOTE | 2023-09-15 06:11 | HO.PSYEVENT2 ---
Documented by User: Suzie Snowden APRN 09/15/23 06:13 Event Note Date of Service: 09/14/23 Psych On-Call Event Note: Notified by team [id number] POC 368. 2 units Lispro added to sliding scale. Time Spent With Patient Time: Total time managing care of this patient today ____ minutes. Documented by User: Jorge A Bello MD 09/18/23 08:27 Event Note Date of Service: 09/18/23
[2023-09-15 07:40] VITALS: BP 157/87; PULSE 72; RESP 14; TEMP 36.4; O2SAT 95
[2023-09-15 08:48] LABS: Glucose, Whole Blood 148 mg/dL (60-115)
[2023-09-15] MEDS: polyethylene glycoL 3350 17 GM POWD.PACK PO ×2 (09:46→21:10)
[2023-09-15 09:48] VITALS: BP 157/87
[2023-09-15] MEDS: Folic Acid 1 MG TABLET PO (09:48)
[2023-09-15] MEDS: OXcarbazepine 300 MG TABLET PO ×2 (09:48→21:11)
[2023-09-15] MEDS: amLODIPine Besylate 5 MG TABLET PO (09:48)
[2023-09-15] MEDS: Sertraline HCL 50 MG TABLET 150 MG PO (09:48)
[2023-09-15] MEDS: Venlafaxine HCl ER 37.5 MG CAP.ER.24H PO (09:49)
[2023-09-15] MEDS: metFORMIN HCl 500 MG TABLET PO ×2 (09:49→21:10)
[2023-09-15] MEDS: Sennosides 8.6 MG TABLET 34.4 MG PO (09:49)
[2023-09-15] MEDS: Thiamine HCL 100 MG TABLET PO ×2 (09:49→21:10)
[2023-09-15] MEDS: Pyridoxine HCl (Vitamin B6) 50 MG TABLET PO (09:49)
[2023-09-15] MEDS: Tamsulosin HCL 0.4 MG CAPSULE PO (09:49)
--- NOTE | 2023-09-15 10:41 | PM.PSYDC ---
DS: Providers Provider Date of Service: 09/15/23 Date of admission: 09/03/23 16:55 Primary care physician: Unknown Physician Consults: 09/04/23 19:07 Consult to Hospitalist Routine Comment: Consulting Provider: Hospitalist Reason For Exam: OSH admission 09/11/23 21:23 Consult to Hospitalist Routine Comment: Consulting Provider: Hospitalist Reason For Exam: increase Metformin? DS: Diagnosis Discharge Diagnosis (1) Schizoaffective disorder, bipolar type: Status: Acute DS: Medications Discharge Medications Home Medications: Home Medications ?Medication ?Instructions ?Recorded ?Confirmed oxcarbazepine 150 mg PO BID 09/03/23 09/03/23 Previous Rx's ?Medication ?Instructions ?Recorded amlodipine 5 mg tablet 5 mg PO DAILY 30 days #30 tabs 09/15/23 atorvastatin 40 mg tablet 40 mg PO BEDTIME 30 days #30 tabs 09/15/23 dapagliflozin propanediol 5 mg 10 mg (2 x 5 mg) PO DAILY 30 days 09/15/23 tablet (Farxiga) #60 tabs folic acid 1 mg tablet 1 mg PO DAILY 30 days #30 tabs 09/15/23 metformin 500 mg tablet 1,000 mg (2 x 500 mg) PO BID 30 09/15/23 days #120 tabs olanzapine 10 mg tablet 15 mg (1.5 x 10 mg) PO BEDTIME 30 09/15/23 days #45 tabs oxcarbazepine 300 mg tablet 300 mg PO BID 30 days #60 tabs 09/15/23 polyethylene glycol 3350 17 gram 17 g PO BID 30 days #60 ea 09/15/23 oral powder packet pyridoxine (vitamin B6) 50 mg 50 mg PO DAILY 30 days #30 tabs 09/15/23 tablet sennosides 8.6 mg tablet (Senna 34.4 mg (4 x 8.6 mg) PO DAILY 30 09/15/23 Lax) days #120 tabs sertraline 50 mg tablet 150 mg (3 x 50 mg) PO DAILY 30 09/15/23 days #90 tabs tamsulosin 0.4 mg capsule 0.4 mg PO DAILY 30 days #30 caps 09/15/23 thiamine mononitrate (vit B1) 100 100 mg PO BID 30 days #60 tabs 09/15/23 mg tablet venlafaxine 37.5 mg 37.5 mg PO DAILY 30 days #30 caps 09/15/23 capsule,extended release 24 hr Mental Status Exam Mental Status Exam Narrative: adequately dressed and groomed. cooperative. less PMR. speech soft, slowed, not delayed. thoughts linear and logical. affect flexible. mood good. no SI/SIBI/HI/AVH. Data Data Completed and Pending Completed studies during hospitalization [Text1]: 09/08/23 09/09/23 09/09/23 22:32 08:00 20:56 Sodium Potassium Chloride Carbon Dioxide Anion Gap BUN Creatinine Estim Creat Clear Calc Estimated GFR POC Glucose 329 H 165 H 316 H Random Glucose Calcium Total Bilirubin Direct Bilirubin AST ALT Alkaline Phosphatase C-Reactive Protein Total Protein Albumin 09/10/23 09/10/23 09/11/23 08:11 21:09 08:27 Sodium Potassium Chloride Carbon Dioxide Anion Gap BUN Creatinine Estim Creat Clear Calc Estimated GFR POC Glucose 141 H 289 H 166 H Random Glucose Calcium Total Bilirubin Direct Bilirubin AST ALT Alkaline Phosphatase C-Reactive Protein Total Protein Albumin 09/11/23 09/11/23 09/11/23 13:44 13:44 13:44 Sodium 134 L Potassium 4.3 Chloride 96 Carbon Dioxide 28 Anion Gap 14 BUN 22 H Creatinine 1.38 1.36 Estim Creat Clear Calc 49.4 50.2 Estimated GFR 39 POC Glucose Random Glucose Calcium Total Bilirubin Direct Bilirubin AST ALT Alkaline Phosphatase C-Reactive Protein Total Protein Albumin 09/11/23 09/11/23 09/11/23 13:44 20:05 21:38 Sodium Potassium Chloride Carbon Dioxide Anion Gap BUN Creatinine Estim Creat Clear Calc Estimated GFR 40 POC Glucose 384 H* 383 H* Random Glucose 272 H Calcium 10.1 Total Bilirubin 0.2 Direct Bilirubin < 0.2 AST 62 H ALT 105 H Alkaline Phosphatase 132 H C-Reactive Protein 0.78 H Total Protein 7.3 Albumin 3.6 09/12/23 09/12/23 09/12/23 00:39 08:01 12:37 Sodium Potassium Chloride Carbon Dioxide Anion Gap BUN Creatinine Estim Creat Clear Calc Estimated GFR POC Glucose 310 H 181 H 191 H Random Glucose Calcium Total Bilirubin Direct Bilirubin AST ALT Alkaline Phosphatase C-Reactive Protein Total Protein Albumin 09/12/23 09/12/23 09/13/23 17:58 20:06 07:51 Sodium Potassium Chloride Carbon Dioxide Anion Gap BUN Creatinine Estim Creat Clear Calc Estimated GFR POC Glucose 334 H 296 H 159 H Random Glucose Calcium Total Bilirubin Direct Bilirubin AST ALT Alkaline Phosphatase C-Reactive Protein Total Protein Albumin 09/13/23 09/13/23 09/13/23 12:43 17:34 21:37 Sodium Potassium Chloride Carbon Dioxide Anion Gap BUN Creatinine Estim Creat Clear Calc Estimated GFR POC Glucose 300 H 317 H 350 H* Random Glucose Calcium Total Bilirubin Direct Bilirubin AST ALT Alkaline Phosphatase C-Reactive Protein Total Protein Albumin 09/14/23 09/14/23 09/14/23 08:53 12:20 17:42 Sodium Potassium Chloride Carbon Dioxide Anion Gap BUN Creatinine Estim Creat Clear Calc Estimated GFR POC Glucose 137 H 293 H 352 H* Random Glucose Calcium Total Bilirubin Direct Bilirubin AST ALT Alkaline Phosphatase C-Reactive Protein Total Protein Albumin 09/14/23 09/15/23 20:49 08:39 Sodium Potassium Chloride Carbon Dioxide Anion Gap BUN Creatinine Estim Creat Clear Calc Estimated GFR POC Glucose 368 H* 148 H Random Glucose Calcium Total Bilirubin Direct Bilirubin AST ALT Alkaline Phosphatase C-Reactive Protein Total Protein Albumin DS: Summary Hospital Course Hospital Course: per 09/03 admission note: per [facility] documentation, pt presented to ED on 08/23 with paranoia, selective mutism, and apparent catatonia. she had been found sitting at a bus stop apparently catatonic. she was briefly admitted to medicine service for RODNEY, then medical cleared after a few days. early psych evaluations were difficult due to pt's minimal participation and intermittent agitation. she did not improve following 2 mg IV ativan, not supporting catatonia Dx. [facility] notes cite collateral saying pt had stopped her medications about a month [employer] after firing her VNA, and that she had done well historically on a regimen including zyprexa 20 mg daily. per [facility], pt is well-known to their service and has similar prior presentations. on interview with MD on mental health [place] [facility], pt is more forthcoming than as described for much of her stay at [facility]. she is notably slowed and answers a lot of questions with, i don't know. history pt provides is supplemented with that in medical record from [facility]. pt denies any safety issues and is in agreement with restarting her home regimen. she has no questions or complaints. Past Psychiatric History: hosps: about 3 prior SA: reports about 5 times. can't recall method. SIB: denies HIB: denies outpt: Dr. Marcos for meds [facility] Narrative: DM lipids HTN stress incontinence obesity Family History: mother - depression, alzheimer's dementia father - alcohol sibs - mental health problems, she cannot provide more info Social History: reports she has been homeless for years, maybe living in a snf. i don't know to a great many questions. financial difficulties. Substance History: tobacco - denies alcohol - uses every other day, a couple beers per occasion cannabis - none in the past 5 years pills - MRE years ago Trauma History: deferred Precis: 09/03: restart home medications. observe for improvement. modify regimen as indicated. 09/04: calm, cooperative. no change in presentation. continue current mgmt. 09/05: calm, cooperative. no change in presentation. continue current mgmt. 09/06: c/o depression. restart effexor XR 37.5 mg as of today, and zoloft 50 mg as of tomorrow (had been on zoloft 150 mg prior to admission). continue to hold Farxiga (NF in any event) as per hospitalist recs. 09/07: continue tx. 09/08: remains flat, slowed, c/o depression. increase zoloft to 100 mg daily as of today. 09/09: no change in presentation. check MoCA. plan to increase zoloft back to outpt dosing of 150 mg daily as of thursday. 09/10: not attending groups, declined MoCA yesterday. try again today. increase zoloft to 150 tomorrow. check labs. 09/11: Continue current regimen and plans 09/12: Continue current plans and regimen. 09/13: asking about discharge. appears much more animated, expressive, less PMR than last week. MoCA 08/26 last week. ACLS requested. planning to discharge home in the next several days. 09/14: continues feeling well, more animated and up from the bed. no safety concerns. meds reviewed, reconciled, prescribed. ACLS completed, score of 3.4, severe cognitive impairment. FSBS elevated and on insulin in hospital, but off usual outpt DM mgmt meds. discharge on prior regimen and DC insulin, referred to PCP [facility]. 09/15: no change in presentation. discharged as per plan. per medical H&P at admission: 50-year-old female with history of type 2 diabetes and hypertension admitted to adult Psychiatry with consult placed to hospitalist service for medical H&P. The patient was transferred to our facility after being admitted to [facility] from 08/24-09/02 due to catatonia and selective mutism ultimately admitted to Medicine due to acute kidney injury. #Mood disoder/catatonia/mutism -plan per psychiatry #Acute kidney injury -discharge summary from [facility] reviewed. Creat around 1.8, ?new baseline. Renal US unremarkable. Outpt follow up per nephrology ([facility]) -continue avoiding SGLT2 -Repeat BMP 1 week per nephro. If needed, consider nephrology consult ([facility] group) #TYpe 2 diabetes -monitor POC, recommend diabetic diet -continue metformin. Add ademlog on ss if needed. Hold farxiga or any SGLT2 #HTN -continue amlodipine Time Spent with Patient Time attestation: Total time managing care of this patient today __45__ minutes. Discharge Plan Discharge Anticipated Discharge Date/Time: 09/16/23 11:00 Patient Disposition: Home, Self-Care Discharge Diagnosis: Schizoaffective Disorder, Bipolar Type Severe Cognitive Impairment Diabetes Mellitus Referrals: Mckenna Jorgensen (Psychiatry) [Other] - 11/05/23 9:00 am (IN OFFICE APPOINTMENT) Cesar Catherine (Therapy) [Other] - 09/22/23 11:00 am (IN OFFICE APPOINTMENT) [facility] [Provider Group] - 09/25/23 1:30 pm ([facility], [address] [place] [address] Follow up appt. confirmed for September 24 at 1:30pm.) Discharge Medications: New sennosides [Senna Lax] 8.6 mg Tablet 34.4 mg PO DAILY 30 Days Qty: 120 0RF polyethylene glycol 3350 17 gram Powder In Packet 17 g PO BID 30 Days Qty: 60 0RF oxcarbazepine 300 mg Tablet 300 mg PO BID 30 Days Qty: 60 0RF tamsulosin 0.4 mg Capsule 0.4 mg PO DAILY 30 Days Qty: 30 0RF pyridoxine (vitamin B6) 50 mg Tablet 50 mg PO DAILY 30 Days Qty: 30 0RF folic acid 1 mg Tablet 1 mg PO DAILY 30 Days Qty: 30 0RF thiamine mononitrate (vit B1) 100 mg Tablet 100 mg PO BID 30 Days Qty: 60 0RF atorvastatin 40 mg Tablet 40 mg PO BEDTIME 30 Days Qty: 30 0RF metformin 500 mg Tablet 1,000 mg PO BID 30 Days Qty: 120 0RF venlafaxine 37.5 mg Capsule,Extended Release 24hr 37.5 mg PO DAILY 30 Days Qty: 30 0RF olanzapine 10 mg Tablet 15 mg PO BEDTIME 30 Days Qty: 45 0RF amlodipine 5 mg Tablet 5 mg PO DAILY 30 Days Qty: 30 0RF sertraline 50 mg Tablet 150 mg PO DAILY 30 Days Qty: 90 0RF dapagliflozin propanediol [Farxiga] 5 mg tablet 10 mg PO DAILY 30 Days Qty: 60 0RF Discontinued Farxiga 10 mg PO DAILY amlodipine 5 mg PO DAILY atorvastatin 40 mg PO DAILY metformin 1,000 mg PO BID olanzapine 15 mg PO BEDTIME sertraline 150 mg PO DAILY venlafaxine 37.5 mg PO DAILY No Action oxcarbazepine 150 mg PO BID Discharge Orders: Discharge Order (Routine); Ordered 09/16/23 Ordered By: Casimiro Terrazas Diet: Diabetic diet Activity on Discharge: As tolerated Stand Alone Forms: Patient Portal Discharge page, Community Support Print Language: [place] Citizen Care Plan Goals: remain safe and stable in the outpatient treatment setting Health Concerns: Diabetes Mellitus Plan of Treatment: take medications as prescribed, attend appointments as scheduled Assessment: not at imminent risk of harm to self or others Discharge Date/Time: 09/16/23 11:20
[2023-09-15 12:56] LABS: Glucose, Whole Blood 300 mg/dL (60-115)
[2023-09-15 17:08] LABS: Glucose, Whole Blood 385 mg/dL (60-115)
[2023-09-15 19:22] VITALS: BP 133/78; PULSE 89; RESP 16; TEMP 36.7; O2SAT 98
[2023-09-15 20:37] LABS: Glucose, Whole Blood 401 mg/dL (60-115)
[2023-09-15] MEDS: Insulin Glargine,Hum.rec.anlog 100 UNIT/ML 10 ML VIAL 16 UNIT SUBCUT (21:09)
[2023-09-15] MEDS: OLANZapine 10 MG TABLET 15 MG PO (21:10)
[2023-09-15] MEDS: Insulin Lispro 100 UNIT/ML 3 ML VIAL SUBCUT (21:10)
[2023-09-15] MEDS: Atorvastatin Calcium 40 MG TABLET PO (21:11)
[2023-09-15 22:14] LABS: Glucose, Whole Blood 382 mg/dL (60-115)
--- NOTE | 2023-09-16 00:39 | PC.NURSE ---
HS blood sugar 401 provider made aware. 10 units of short acting insulin administered. blood sugar recheck 1 hour after insulin administration 382
[2023-09-16 07:36] VITALS: BP 128/74; PULSE 75; RESP 14; TEMP 36.7; O2SAT 97
[2023-09-16] MEDS: polyethylene glycoL 3350 17 GM POWD.PACK PO (09:48)
[2023-09-16] MEDS: Thiamine HCL 100 MG TABLET PO (09:49)
[2023-09-16] MEDS: Sertraline HCL 50 MG TABLET 150 MG PO (09:49)
[2023-09-16] MEDS: Tamsulosin HCL 0.4 MG CAPSULE PO (09:49)
[2023-09-16] MEDS: Folic Acid 1 MG TABLET PO (09:49)
[2023-09-16] MEDS: OXcarbazepine 300 MG TABLET PO (09:49)
[2023-09-16] MEDS: Venlafaxine HCl ER 37.5 MG CAP.ER.24H PO (09:49)
[2023-09-16] MEDS: Pyridoxine HCl (Vitamin B6) 50 MG TABLET PO (09:49)
[2023-09-16] MEDS: metFORMIN HCl 500 MG TABLET PO (09:49)
[2023-09-16] MEDS: Sennosides 8.6 MG TABLET 34.4 MG PO (09:49)
[2023-09-16 09:50] VITALS: BP 128/74
[2023-09-16] MEDS: amLODIPine Besylate 5 MG TABLET PO (09:50)
[2023-09-16 13:08] LABS: Glucose, Whole Blood 169 mg/dL (60-115)
== END 2023-09-16 11:20 | disposition home or self-care (01) | DRG 750 ==
PROVIDERS: Social Worker; Admitting Provider Psychiatry & Neurology Psychiatry; Visit Provider Psychiatry & Neurology Psychiatry
DX: F25.0 Schizoaffective disorder, bipolar type (principal); N17.9 Acute kidney failure, unspecified; F06.1 Catatonic disorder due to known physiological condition; G30.9 Alzheimer's disease, unspecified; I10 Essential (primary) hypertension; F94.0 Selective mutism; E66.9 Obesity, unspecified; E11.65 Type 2 diabetes mellitus with hyperglycemia; Z68.31 Body mass index [BMI] 31.0-31.9, adult; F02.80 Dementia in other diseases classified elsewhere, unspecified severity, without behavioral disturbance, psychotic disturbance, mood disturbance, and anxiety; Z59.02 Unsheltered homelessness; N39.3 Stress incontinence (female) (male); Z79.84 Long term (current) use of oral hypoglycemic drugs; Z79.899 Other long term (current) drug therapy
CPT/HCPCS: 36415; 80048; 80053; 80061; 80076; 82565; 82607; 82746; 82947; 83036; 83735; 84443; 86140

== ENCOUNTER → 2023-09-03 16:55 | Outpatient (BNV) | payer OTHER, SELFPAY | PROVIDERS: Admitting Provider Psychiatry & Neurology Psychiatry; Visit Provider Psychiatry & Neurology Psychiatry | DX: F25.0 Schizoaffective disorder, bipolar type (principal) | CPT/HCPCS: 99231; 99232; 99233; 99499 ==

== ENCOUNTER → 2023-09-03 16:55 | Outpatient (BNV) | payer OTHER, SELFPAY | PROVIDERS: Admitting Provider Psychiatry & Neurology Psychiatry; Visit Provider Physician Assistant | DX: N17.9 Acute kidney failure, unspecified (principal); E11.9 Type 2 diabetes mellitus without complications; I10 Essential (primary) hypertension; F06.1 Catatonic disorder due to known physiological condition | CPT/HCPCS: 99222; 99499 ==